=== PATIENT | female | born 1945 | race Caucasian/White ===

== ENCOUNTER 2016-09-14 08:00 | Outpatient (CLI) | payer MEDICARE, OTHER ==
--- NOTE | 2016-09-16 16:23 | EC ---
PATIENT:CHRIS KINCAID DATE OF SERVICE: SEX: F MEDICAL RECORD: [id number] DATE OF : 41 LOCATION:D.[facility] AGE OF PATIENT: 70 ADMISSION DATE: 09/14/16 REFERRING PHYSICIAN: INTERPRETING PHYSICIAN: SHIRLEY STEWARD MD ECHOCARDIOGRAM REPORT ECHO CHARGES 4 ECHO COMPLETE CLINICAL DIAGNOSIS: HYPERTENSION ECHOCARDIOGRAPHIC MEASUREMENTS (adult normal given) AC root (d.<3.7cm) 3.9 LV Septum d (<1.2 cm> 1.6 Valve Excursion 1.7 LV Septum (systole) 1.7 Left Atria (s.<4.0cm> 3.6 LVPW d(<1.2cm) 1.4 RV (d.<2.3cm) 3.3 LVPW (sytole) 1.9 LV diastole(<5.6CM) 5.4 MV E-F(>70mm/sec) LV systole 3.9 LVOT Diameter 1.5 MV exc.(>10mm) Est.ejection fraction (50-75%) Pericardial Effusion N DOPPLER: LVIT A 98.0 E 51.0 LA RVSP 31 LVOT 139 AOP1/2T 624 Asc. Ao 199 RVOT 96 RA PA 102 AV Gradient Peak 15.86 AV Mean 7.81 AV Area 1.5 MV Gradient Peak 3.3 MV Mean 1.03 MV Area COMMENTS: Alcoholism Worker: Tra LOYOLA Cleaner Touch Up Worker:1 Dr. Steward TAPE# PACS DATE OF SERVICE: 09/14/2016 Echocardiogram FINDINGS: 1. Left ventricular chamber size is within normal limits. Left ventricular systolic function is normal. Overall ejection fraction estimated at 55%. 2. Left atrium is within normal limits at 3.6 cm. Right atrium and right ventricular chamber sizes are mildly dilated. 3. Valvular structures: Aortic valve is bicuspid valve; however, there is no ECHOCARDIOGRAM REPORT [id number] CHRIS KINCAID significant aortic stenosis. The remaining valvular structures have normal structure and motion. 4. Doppler interrogation reveals mild aortic insufficiency, mild tricuspid regurgitation. No other valvular insufficiency or stenosis and pulmonary systolic pressure is normal estimated at 31 mmHg. 5. No evidence of pericardial effusion or left ventricular thrombus. TRANSINT:[id number] Voice Confirmation ID: [id number] DOCUMENT ID: [id number] SHIRLEY STEWARD MD at 1623 CC: [id number] DICTATION DATE: 09/14/16 0943 INDUSTRIAL CHEMIST: 09/14/16 1007 PRE [facility] [address] [place] [address]
== END 2016-09-14 23:59 | disposition home or self-care (01) ==
LOC: D.ECHO 08:00
DX: I10 Essential (primary) hypertension (principal)

== ENCOUNTER → 2017-05-26 09:29 | Outpatient (CLI) | payer MEDICARE, OTHER | LOC: D.MAMMO 09:29 | DX: Z12.31 Encounter for screening mammogram for malignant neoplasm of breast (principal) ==

== ENCOUNTER → 2017-06-22 17:01 | Outpatient (CLI) | payer MEDICARE, OTHER | END | disposition home or self-care (01) | LOC: D.MAMMO 15:00 | DX: R92.8 Other abnormal and inconclusive findings on diagnostic imaging of breast (principal) ==

== ENCOUNTER → 2017-11-09 09:31 | Outpatient (CLI) | payer MEDICARE, OTHER ==
--- NOTE | ~2017-11-09 | EC ---
PATIENT:CHRIS KINCAID DATE OF SERVICE: 11/09/17 SEX: F MEDICAL RECORD: [id number] DATE OF : 41 [facility]ATION:[facility] AGE OF PATIENT: 71 ADMISSION DATE: 11/09/17 REFERRING PHYSICIAN: INTERPRETING PHYSICIAN: SHIRLEY STEWARD MD ECHOCARDIOGRAM REPORT ECHO CHARGES 4 ECHO COMPLETE CLINICAL DIAGNOSIS: /THORACIC ANEURYSM ECHOCARDIOGRAPHIC MEASUREMENTS (adult normal given) AC root (d.<3.7cm) 3.7 cm LV Septum d (<1.2 cm> 1.5 cm Valve Excursion 1.9 cm LV Septum (systole) 2.2 cm Left Atria (s.<4.0cm> 2.9 cm LVPW d(<1.2cm) 1.5 cm RV (d.<2.3cm) 2.5 cm LVPW (sytole) 1.9 cm LV diastole(<5.6CM) 5.2 cm MV E-F(>70mm/sec) cm LV systole 2.8 cm LVOT Diameter 1.7 cm MV exc.(>10mm) cm Est.ejection fraction (50-75%) % Pericardial Effusion N DOPPLER: LVIT cm/sec A 64.0 cm/sec E 63.0 cm/sec LA cm/sec RVSP 37.0 mmHg LVOT 90.0 cm/sec AOP1/2T 716.0m/s Asc. Ao 202 cm/sec RVOT 58.0 cm/sec RA cm/sec PA 80.0 cm/sec AV Gradient Peak 16.3 mmHg AV Mean 7.8 mmHg AV Area 0.9 cm MV Gradient Peak 4.1 mmHg MV Mean 1.0 mmHg MV Area cm COMMENTS: Cream Dumper: 1 MADISON ETIENNEOE Hot Stamp Operator: 1 Dr. Steward TAPE# PACS DATE OF SERVICE: 11/09/2017 Echocardiogram FINDINGS: 1. Left ventricular chamber size is within normal limits. Left ventricular systolic function is normal. Overall ejection fraction estimated at 55%. 2. Left atrium, right atrium and right ventricular chamber sizes are within normal limits. 3. Valvular structures: Aortic valve is bicuspid, mild to moderately ECHOCARDIOGRAM REPORT [id number] CHRIS KINCAID calcified, valve area calculates to 0.9 cm-squared. There is a gradient of 16 mm across the valve. The remaining valvular structures have normal structure and motion. 4. Doppler interrogation elsewise reveals moderate aortic insufficiency, moderate mitral regurgitation, moderate tricuspid regurgitation, no other valvular insufficiency or stenosis. Pulmonary systolic pressure is estimated at 37 mmHg. 5. No evidence of pericardial effusion or left ventricular thrombus. 6. The ascending aorta is aneurysmally dilated at 4.2 cm. TRANSINT:[id number] Voice Confirmation ID: [id number] DOCUMENT ID: [id number] SHIRLEY STEWARD MD at 1153 CC: [id number] DICTATION DATE: 11/09/17 1251 SIGHT EFFECTS SPECIALIST: 11/09/17 1316 DEP CLI 11/09/17 [facility] [address] [place] [address]
== END | disposition home or self-care (01) ==
LOC: D.ECHO 09:31
DX: I71.2 Thoracic aortic aneurysm, without rupture (principal)

== ENCOUNTER → 2018-06-06 18:30 | Outpatient (CLI) | payer MEDICARE, OTHER | END | disposition home or self-care (01) | LOC: D.MAMMO 09:00 | DX: Z12.31 Encounter for screening mammogram for malignant neoplasm of breast (principal) ==

== ENCOUNTER → 2018-11-21 08:13 | Outpatient (CLI) | payer MEDICARE, BC ==
--- NOTE | 2018-11-24 14:57 | EC ---
PATIENT:CHRIS KINCAID DATE OF SERVICE: 11/21/18 SEX: F MEDICAL RECORD: [id number] DATE OF : 41 LOCATION:D.CT AGE OF PATIENT: 72 ADMISSION DATE: 11/21/18 REFERRING PHYSICIAN: INTERPRETING PHYSICIAN: SHIRLEY STEWARD MD ECHOCARDIOGRAM REPORT ECHO CHARGES 4 ECHO COMPLETE Date: 11/21/18 CLINICAL DIAGNOSIS: DYSPNEA HX OF BISCUPID AORTIC VALVE ECHOCARDIOGRAPHIC MEASUREMENTS (adult normal given) AC root (d.<3.7cm) 3.9 cm LV Septum d (<1.2 cm> 1.5 cm Valve Excursion 1.9 cm LV Septum (systole) 1.8 cm Left Atria (s.<4.0cm> 3.4 cm LVPW d(<1.2cm) 1.5 cm RV (d.<2.3cm) 3.5 cm LVPW (sytole) 2.0 cm LV diastole(<5.6CM) 4.9 cm MV E-F(>70mm/sec) cm LV systole 2.6 cm LVOT Diameter 1.6 cm MV exc.(>10mm) 1.5 cm Est.ejection fraction (50-75%) % DOPPLER: LVIT cm/sec A 80.0 cm/sec E 72.0 cm/sec LA cm/sec RVSP 31 mmHg LVOT 116 cm/sec AOP1/2T 631 m/s Asc. Ao 164 cm/sec RVOT 83 cm/sec RA cm/sec PA 94 cm/sec AV Gradient Peak 10.73mmHg AV Mean 5.78 mmHg AV Area 2.0 cm MV Gradient Peak 4.37 mmHg MV Mean 1.92 mmHg MV Area cm COMMENTS: Master Brewer: Tra LOYOLA Scientific Research Associate: Katty Steward TAPE# PACS Pericardial Effusion N DATE OF SERVICE: 11/21/2018 ECHOCARDIOGRAM FINDINGS: 1. Left ventricular chamber size is within normal limits. Left ventricular systolic function is normal. Overall ejection fraction estimated at 60%. 2. Left atrium, right atrium and right ventricular chamber sizes are within normal limits. 3. Valvular structures: Aortic valve is bicuspid valve. There is no ECHOCARDIOGRAM REPORT [id number] CHRIS KINCAID significant aortic stenosis. The remaining valvular structures have normal structure and motion. 4. Doppler interrogation reveals mild aortic insufficiency, mild mitral regurgitation, mild tricuspid regurgitation, no other valvular insufficiency or stenosis. Pulmonary systolic pressure is normal estimated at 31 mmHg. 5. No evidence of pericardial effusion or left ventricular thrombus. TRANSINT:[id number] Voice Confirmation ID: [id number] DOCUMENT ID: [id number] SHIRLEY STEWARD MD at 1457 CC: [id number] DICTATION DATE: 11/22/18 0950 VACUUM DRIER TENDER: 11/22/18 1044 DEP CLI 11/21/[address] [address]
== END | disposition home or self-care (01) ==
LOC: D.CT 08:13
PROVIDERS: ATTEND Internal Medicine Cardiovascular Disease
DX: I77.819 Aortic ectasia, unspecified site (principal); R06.00 Dyspnea, unspecified

== ENCOUNTER 2018-12-28 07:01 | Outpatient (CLI) | payer MEDICARE, BC ==
[~2018-12-28] VITALS: Ht 165.1 cm; Wt 70.5 kg
--- NOTE | ~2018-12-28 | HEMODYNAMI ---
PATIENT:CHRIS KINCAID MEDICAL RECORD: [id number] : 41 LOCATION:[facility] ADMISSION DATE: 12/28/18 Generatedon:12/28/20189:47 Patient name: CHRIS KINCAID Patient #: [id number] SSN: : 1945 Date of study: 12/28/2018 Page: Of Hemodynamic Procedure Report Patient Data Patient Demographics Procedure consent was obtained First Name: CHRIS Gender: Female Last Name: CODI : 1945 [facility] Initial: B Age: 73 year(s) Patient #: [id number] Race: Unknown Additional ID: [id number] Contact details Address: [address] [place] [address] [place] State: [place] City: [place] Zip code: [address] Past Medical History Allergies: No known allergies Admission Admission Data Admission Date: 12/28/2018 Admission Time: 7:01 Admit Source: Other Lab Results Lab Result Date: 12/28/2018 Lab Result Time: 7:40 Biochemistry Name Units Result Min Max BUN mg/dl 15 --(--*-)-- 7 18 Creatinine mg/dl 0.7 --(*---)-- 0.6 1.3 CBC Name Units Result Min Max Hematocrit % 41.2 -*(----)-- 42 54 Hemoglobin g/dl 13.9 --(*---)-- 13.5 17.5 Procedure Procedure Types Cath Procedure Diagnostic Procedure LHC LHC w/Coronaries Aortic Root Angiography Sedation Charges Moderate Sedation up to 30 minutes Procedure Description Procedure Date Procedure Date: 12/28/2018 Procedure Start Time: 9:17 Procedure End Time: 9:47 Procedure Staff Name Function Ganga Sanches MD Performing Physician Gabo Boyle RT Monitor Jose Connell RT Scrub Liya Chavez RN Nurse Ryan Denton RN Temple Meat Cutter Procedure Data Cath Procedure Fluoroscopy Diagnostic fluoroscopy Total fluoroscopy Time: 9.3 time: 9.3 min min Diagnostic fluoroscopy Total fluoroscopy dose: 664 dose: 664 mGy mGy Contrast Material Contrast Material Type Amount (ml) Isovue 370 110 Entry Location Entry Primary Successful Side Size Upsize Upsize Entry Closure Borrero ccessful Closure Location (Fr) 1 (Fr) 2 (Fr) Remarks Device Remarks Radial Right 6 Fr Mechanical artery Short Compression Femoral Right 5 Fr Exoseal artery Estimated blood loss: 5 ml Diagnostic catheters Device Type Used For End Catheter Placement DIAGNOSTIC Cresson 110cm 5 Procedure Fr catheter ([id number]) DIAGNOSTIC Av 110cm Procedure 5Fr catheter (803696) DIAGNOSTIC AR1 MOD 5Fr Procedure catheter ([id number]) DIAGNOSTIC JL 4.0 5Fr Procedure catheter (128291O) DIAGNOSTIC JL 4.0 5Fr Procedure catheter (487241F) DIAGNOSTIC JL 5 5Fr Procedure catheter (812706N) DIAGNOSTIC Pigtail 5Fr Procedure catheter (563673F) Procedure Complications No complications Procedure Medications Medication Administration Route Dosage 0.9% NaCl I.V. 100 ml/hr Oxygen etCO2 Nasal cannula 2 l/min Lidocaine 2% added to field 20 Heparin Flush Bag added to field 2 bags (1000units/500ml NS) Radial Cocktail added to field 1 syringe (Verapomil 2mg/Nitro 400mcg/Heparin 1500units) Versed I.V. 2 mg Fentanyl I.V. 50 mcg Versed I.V. 1 mg Fentanyl I.V. 25 mcg Hemodynamics Rest HGB: 13.9 (g/dl) Heart Rate: 72 (bpm) Pressure Samples Time Site Value (mmHg) Purpose Heart Use Rate(bpm) 9:22 LV 108/-3,12 Snapshot 74 9:22 AO 90/49(65) Pullback 75 9:22 LV 102/-1,8 Pullback 75 Gradients Valve Time Site 1 Site 2 Mean SEP/DFP Peak To Heart Use (mmHg) (sec/min) Peak Rate (mmHg) (bpm) Aortic 9:22 LV AO 12 22 12 75 102/-1,8 90/49(65) Calculations Valve P-P Mean Valve Index Valve Source Name Gradient Area Flow (cm2) Aortic 12 12 12 12 Snapshots Pre Cath Intra NCS Post Cath Vital Signs Time Heart Resp SPO2 etCO2 NIBP (mmHg) Rhythm Pain Sedation Rate (ipm) (%) (mmHg) Status Level (bpm) 9:01:56 68 13 98 37 143/83(121) NSR 0 (11) 10(A) , No pain 9:06:10 71 16 99 31.9 143/82(130) NSR 0 (11) 10(A) , No pain 9:10:22 68 15 99 37.1 115/65(93) NSR 0 (11) 10(A) , No pain 9:14:32 70 17 98 38.6 111/65(91) NSR 0 (11) 10(A) , No pain 9:18:42 72 19 97 39.3 101/62(87) NSR 0 (11) 9(A) , No pain 9:22:48 74 17 98 36.3 95/55(78) NSR 0 (11) 9(A) , No pain 9:26:51 73 14 96 37 98/60(71) NSR 0 (11) 9(A) , No pain 9:30:57 73 15 99 37.8 106/61(77) NSR 0 (11) 9(A) , No pain 9:35:05 71 14 100 37.1 111/61(81) NSR 0 (11) 9(A) , No pain 9:39:13 75 16 99 37.8 114/67(92) NSR 0 (11) 9(A) , No pain 9:43:23 74 10 100 38.5 122/70(99) NSR 0 (11) 10(A) , No pain Medications Time Medication Route Dose Verified Delivered Reason Notes Ef fectiveness by by 9:01:03 0.9% NaCl I.V. 100 Ganga Liya used for ml/hr Myron Chavez healthcare translator 9:01:09 Oxygen etCO2 2 l/min Ganga Liya used for Nasal Myron Chavez procedure cannula RN 9:01:15 Lidocaine 2% added 20ml Ganga Ganga for local to vial Myron Sanches MD anesthetic field 9:01:19 Heparin Flush added 2 bags Ganga Ganga used for Bag to Myron Sanches MD procedure (1000units/500ml field NS) 9:01:25 Radial Cocktail added 1 Ganga Ganga used for (Verapomil to syringe Myron Sanches MD procedure 2mg/Nitro field 400mcg/Heparin 1500units) 9:11:33 Versed I.V. 2 mg Ganga Liya for Myron Chavez sedation RN 9:11:39 Fentanyl I.V. 50 mcg Ganga Liya for Myron Chavez sedation RN 9:16:33 Versed I.V. 1 mg Ganga Liya for Myron Chavez sedation RN 9:16:37 Fentanyl I.V. 25 mcg Ganga Liya for Myron Chavez sedation financial aid officer Log Time Note 8:48:43 Informed consent obtained and on chart 8:48:47 Admit Source: Other 8:49:16 Diagnostic Cath status Elective 8:49:19 Ryan Denton RN sent for patient. Start room use. 8:51:10 Time tracking: Regular hours (M-F 7:00 - 5:00) 8:51:14 Plan of Care:Hemodynamics will remain stable., Cardiac rhythm will remain stable., Comfort level will be maintained., Respiratory function will remain adequate., Patient/ family verbilizes understanding of procedure., Procedure tolerated without complication., Recovers from procedure without complications.. 8:51:42 H&P Date Dictated: 12/19/2018 Within 30 days and on chart., H&P Addendum completed by physician on day of procedure. (MUST COMPLETE FOR ALL OUTPATIENTS). 8:54:25 Lab Result : Creatinine 0.7 mg/dl 8:54:25 Lab Result : BUN 15 mg/dl 8:54:25 Lab Result : Hemoglobin 13.9 g/dl 8:54:25 Lab Result : Hematocrit 41.2 % 8:54:34 Lab results completed and on chart. 8:55:17 Patient received from Pre/Post Procedure Room to CCL 1 Alert and oriented. Tansferred to table in Supine position. 8:55:18 Warm blankets applied, and carter hugger turned on for patient comfort. 8:55:18 Correct patient and procedure confirmed by team. 8:55:19 ECG and BP/O2 sat monitors applied to patient. 8:55:20 Pre-procedure instructions explained to patient. 8:55:21 Pre-op teaching completed and patient verbalized understanding. 8:55:24 Family in waiting room. 8:55:27 Patient NPO since Midnight. 8:55:32 Patient allergic to No known allergies 9:00:53 Vital chart was started 9:01:03 0.9% NaCl 100 ml/hr I.V. was administered by Liya Chavez RN; used for procedure; 9:01:09 Oxygen 2 l/min etCO2 Nasal cannula was administered by Liya Chavez RN; used for procedure; 9::15 Lidocaine 2% 20ml vial added to field was administered by Ganga Sanches MD; for local anesthetic; 9::19 Heparin Flush Bag (1000units/500ml NS) 2 bags added to field was administered by Ganga Sanches MD; used for procedure; 9::25 Radial Cocktail (Verapomil 2mg/Nitro 400mcg/Heparin 1500units) 1 syringe added to field was administered by Ganga Sanches MD; used for procedure; 9:08:13 Baseline sample Acquired. 9::47 Rhythm: sinus rhythm 9::48 Full Disclosure recording started 9:08:51 Is the patient allergic to Iodine/contrast media? No. 9:09:02 Is patient on blood thinner?No 9:09:04 Patient diabetic? No. 9:09:07 Previous problem with sedation/anesthesia? No ? 9:09:08 Snore? Yes 9:09:08 Sleep apnea? No 9:09:09 Deviated septum? No 9:09:10 Opens mouth fully? Yes 9:09:10 Sticks out tongue? Yes 9:09:42 Airway obstruction? Yes asthma 9:09:44 Dentures? No ? 9:09:47 Pre procedure: right dorsailis pedis pulse 2+ Normal; easily identifiable; not easily obliterated 9:09:50 Modified Rufino's test Ulnar > 7 seconds. 9:09:52 Patient pain scale 0/10 ?. 9:09:59 IV patent on arrival in left wrist with 0.9% NaCl at KVO. 9:10:04 Right Radial & Right Groin area was prepped with chlora-prep and draped in sterile fashion 9:10:06 Alarms reviewed by R. N. 9:10:07 Sharps counted by scrub and verified by R.N. 9:10:08 Use device set Radial Dx or PCI 9:10:10 ACIST Syringe (64291) opened to sterile field. 9:10:10 Medline Cath Pack ([id number]) opened to sterile field. 9:10:12 Bag Decanter (2002) opened to sterile field. 9:10:14 ACIST Hand Control (45538) opened to sterile field. 9:10:15 ACIST Manifold (61087) opened to sterile field. 9:10:15 Tegaderm 4 x 4 (1626W) opened to sterile field. 9:10:16 MBrace Wrist Support ([id number]) opened to sterile field. 9:10:16 DIAGNOSTIC WIRE .035 260cm J wire (717148) opened to sterile field. 9:10:18 SHEATH 6FR Slender (69-0680) opened to sterile field. 9:10:20 NEEDLE Cook 21G 4cm Radial (U71053) opened to sterile field. 9:10:30 Physician arrived 9:10:30 --------ALL STOP TIME OUT------ 9:10:30 Final Timeout: patient, procedure, and site verified with staff and physician. All members of the team are in agreement. 9:10:32 Right Radial & Right Groin site verified by team. 9:10:39 Maximum allowable Isovue 370 dose 300ml. Physician notified. (300ml for normal creatinines. For patients with creatinine of 1.7 or higher multiply weight(kg) x 5 divided by creatinine.) 9:10:42 Fire Safety Assessment: A--An alcohol-based skin anteseptic being used preoperatively., C--Open oxygen or nitrous oxide is being used., D--An ESU, laser, or fiber-optic light is being used. 9:10:47 Physical assessment completed. ASA score P 2 - A patient with mild systemic disease as per Ganga Sanches MD. 9:10:52 Sedation plan: IV Moderate Sedation Medication:Versed, Fentanyl 9:11:02 Zero performed for pressure channel P1 9:11:33 Versed 2 mg I.V. was administered by Liya Chavez RN; for sedation; 9:11:39 Fentanyl 50 mcg I.V. was administered by Liya Chavez RN; for sedation; 9:16:33 Versed 1 mg I.V. was administered by Liya Chavez RN; for sedation; 9:16:37 Fentanyl 25 mcg I.V. was administered by Liya Chavez RN; for sedation; 9:17:54 Procedure started. 9:17:59 Local anesthetic to right radial artery with Lidocaine 2% by Ganga Sanches MD.INITIAL ACCESS ONLY 9:19:12 A 6 Fr Short sheath was inserted into the Right Radial artery 9:20:00 A DIAGNOSTIC Cresson 110cm 5 Fr catheter (253980) was advanced over the wire and used for Procedure. 9:22:26 LV gram done using JOYNER 9:22:34 Injector settings: Ml/sec: 10, Volume: 20, 9:22:35 LV hemodynamics recorded. 9:22:39 EF : 60 % 9:25:40 Catheter removed. unable to cannulate vessel. 9:25:44 A DIAGNOSTIC Av 110cm 5Fr catheter (362906) was advanced over the wire and used for Procedure. 9:27:09 Catheter removed. unable to cannulate vessel. 9:28:17 A DIAGNOSTIC AR1 MOD 5Fr catheter (531569E) was advanced over the wire and used for Procedure. 9:28:35 RCA angiography performed. 9:32:20 A DIAGNOSTIC JL 4.0 5Fr catheter (332260T) was advanced over the wire and used for Procedure. 9:32:29 Catheter removed. unable to cannulate vessel. 9:32:43 SHEATH 5FR Melcher Dallas (KSY581) opened to sterile field. 9:32:51 Local anesthetic to right femoral artery with Lidocaine 2% by Ganga Sanches MD.ADDITIONAL ACCESS 9:32:58 A 5 Fr sheath was inserted into the Right Femoral artery 9:35:36 A DIAGNOSTIC JL 4.0 5Fr catheter ([id number]) was advanced over the wire and used for Procedure. 9:35:46 Catheter removed. unable to cannulate vessel. 9:35:55 A DIAGNOSTIC JL 5 5Fr catheter (247879X) was advanced over the wire and used for Procedure. 9:36:30 LCA angiography performed. 9:38:08 Catheter exchanged over wire. 9:38:20 A DIAGNOSTIC Pigtail 5Fr catheter (446685A) was advanced over the wire and used for Procedure. 9:38:21 TR BAND Standard ([id number]) opened to sterile field. 9:39:30 Aortic Root visualized 9:43:18 Catheter removed. 9:44:08 EXOSEAL 5Fr (EX500) opened to sterile field. 9:44:16 Sheath removed intact; hemostasis achieved with Exoseal to the Right Femoral artery. 9:44:22 Sheath removed intact; hemostasis achieved with Mechanical Compression to the Right Radial artery. 9:44:31 Procedure ended.(Physican Out) 9:44:45 Fluoroscopy time 09.30 minutes. 9:44:49 Fluoroscopy dose: 664 mGy 9:44:49 Flurop Dose total: 664 9:44:53 Contrast amount:Isovue 370 110ml. 9:44:59 Sharps counted by scrub and verified by R.N. 9:45:03 TR band inflated with 12cc of air. 9:45:04 Insertion/operative site no bleeding no hematoma. 9:45:07 Post-op/insertion site Right Femoral artery dressed using a 4 x 4 and Tegaderm. 9:45:10 Post right femoral artery:stable, soft, clean and dry 9:45:14 Post right radial artery:stable, soft, clean and dry 9:45:16 Post Procedure Pulses reassessed and unchanged 9:45:18 Post-procedure physical assessment completed. ASA score P 2 - A patient with mild systemic disease as per Ganga Sanches MD. 9:45:20 Post procedure rhythm: unchanged. 9:45:22 Estimated blood loss: 5 ml 9:45:30 Post procedure instruction explained to patient.Patient verbalizes understanding. 9:45:31 Patient needs reinforcement of post procedure teaching. 9:45:51 Procedure type changed to Cath procedure, Diagnostic procedure, LHC, LHC w/Coronaries, Aortic Root Angiography, Sedation Charges, Moderate Sedation up to 30 minutes 9:47:01 Procedure and supply charges have been captured, reviewed, submitted and are correct. 9:47:03 Procedure Complication : No complications 9:47:05 Vital chart was stopped 9:47:06 See physician's report for complete and final results. 9:47:07 Report given to Pre/Post Procedure Room. 9:47:09 Patient transfered to Pre/Post Procedure Room with Stretcher. 9:47:15 Procedure ended. 9:47:15 Full Disclosure recording stopped 9:47:18 End room use (Document Last) Device Usage Item Name Manufacture Quantity Catalog Hospital Part Current Minimal Lot# / Number Charge Number Stock Stock Serial# Code ACIST Acist 1 50965 593877 419228 695573 20 barcoo (66523Private Practice Inc Medline Medline 1 [id number] 076821 50840 783430 5 Cath Pack ([id number]) Bag Microtek 1 040829 55804 212172 5 Decanter Medical Inc. () ACIST Hand Acist 1 10770 019760 199581 546016 5 Control Medical (62932) Systems Inc ACIST Acist 1 94166 317068 984288 195789 5 Manifold Medical (43424) Systems Inc Tegaderm 4 3M 1 1626W 362253 288697 705293 5 x 4 (1626W) MBrace Advanced 1 140-0250-00 258839 73885 781299 5 Wrist Vascular Support Dynamics ([id number]) DIAGNOSTIC [facility] [place] 1 986687 316959 725630 457274 30 WIRE .035 260cm J wire (619738) SHEATH 6FR Terumo 1 [id number] 405768 848342 611576 5 Slender (80-1060) NEEDLE HDF [facility] 1 O33438 184965 007133 845218 5 21G 4cm Radial (E71847) DIAGNOSTIC Terumo 1 40-5013 511395 877420 987784 5 Cresson 110cm 5 Fr catheter (315693) DIAGNOSTIC Terumo 1 40-5023 400798 074677 656538 5 Av 110cm 5Fr catheter (432287) DIAGNOSTIC Cardinal 1 162764W 201028 668017 845319 15 AR1 MOD 5Fr Health catheter (089055Z) DIAGNOSTIC Cardinal 1 466124O 252741 740762 680533 10 JL 4.0 5Fr Health catheter (500039T) SHEATH 5FR Terumo 1 ORE730 423420 728139 657098 5 Melcher [place] (LCE961) DIAGNOSTIC Cardinal 1 580473L 062626 450999 049167 5 JL 5 5Fr Health catheter (648906A) DIAGNOSTIC Cardinal 1 373000M 128772 335297 020258 5 Pigtail 5Fr Health catheter (352085W) TR BAND Terumo 1 [id number] 851904 472725 109957 40 Standard (VLT22PON) EXOSEAL 5Fr Cardinal 1 EX500 085036 547963 068723 10 (EX500) Health Signature Audit [place] Stage Time Signature Unsigned Intra-Procedure 12/28/2018 Gabo Boyle 9:47:40 AM RT(R) Signatures Monitor : Gabo Boyle RT Signature : Date : Time : [place] [id number] [facility] [place] [address]
[2018-12-28] MEDS ORDERED: RESTORIL15 MG PO (07:23)
[2018-12-28] MEDS ORDERED: PRAVACHOL40 MG PO (07:24)
[2018-12-28] MEDS ORDERED: PROZAC20 MG PO (07:24)
[2018-12-28] MEDS ORDERED: BUPROPION HCL150 M1 PO (07:24)
[2018-12-28] MEDS ORDERED: ZYRTEC10 MG PO (07:25)
[2018-12-28] MEDS ORDERED: LEVOTHYROXINE125 MCG PO (07:25)
[2018-12-28] MEDS ORDERED: DULERA 100 MCG8.8 GM INH (07:25)
[2018-12-28] MEDS ORDERED: SINGULAIR10 MG PO (07:25)
[2018-12-28] MEDS ORDERED: FLUTICASONE PRO16 GM NASAL (07:25)
[2018-12-28] MEDS ORDERED: ASPIRIN325 MG PO (07:26)
[2018-12-28] MEDS ORDERED: PROBIOTIC BLEN1 EACH PO (07:26)
[2018-12-28] MEDS ORDERED: CALCIUM 500 +1 EAC3 PO (07:26)
[2018-12-28 07:37] VITALS: BP 135/81; Ht 165.1 cm; Wt 70.5 kg
[2018-12-28 07:45] LABS: BASOPHILS 0.9 % (0-2); EOSINOPHILS 10.3 % (0-7); HEMATOCRIT 41.2 % (36.0-48.0); HEMOGLOBIN 13.9 g/dL (12-16); IMMATURE GRANULOCYTES 0.3 % (0-5); LYMPHOCYTES 35.8 % (15-50); MCH 32.2 pg (26.0-34.0); MCHC 33.7 g/dL (31.0-37.0); MCV 95.4 fL (80.0-100.0); MEAN PLATELET VOLUME 10.1 fL (7.4-10.4); MONOCYTES 8.4 % (2-11); NEUTROPHILS 44.3 % (40-80); PLATELET COUNT 337 10x3/uL (130-400); RBC 4.32 10x6/uL (4.00-5.40); RDW 13.8 % (11.5-14.5); WBC 6.4 10x3/uL (4.8-10.8)
[2018-12-28 07:52] LABS: CALC OSMOLALITY 287 mosm/kg (275-300); CALCIUM 8.7 mg/dL (8.5-10.1); CARBON DIOXIDE 28.6 mmol/L (21.0-32.0); CHLORIDE - SERUM 109 mmol/L (98-107); CREATININE - SERUM 0.7 mg/dL (0.6-1.3); GLUCOSE 96 mg/dL (74-106); POTASSIUM - SERUM 4.2 mmol/L (3.5-5.1); SODIUM 144 mmol/L (136-145); UREA NITROGEN 15 mg/dL (7-18); eGFR NON AFRICAN AMERICAN 86 mL/min (90-120)
--- NOTE | 2018-12-28 09:55 | NUR ---
PT RECEIVED VIA STRETCHER FROM DIRECTOR STAFFING FOR RECOVERY. PT SLEEPY BUT VERBALLY AROUSABLE. TR BAND AND IMMOBILIZER IN PLACE ON R WRIST, DRESSING CDI NO BLEEDING OR SWELLING NOTED. R GROIN W 5FR EXOCELE, DRESSING CDI NO BLEEDING OR HEMATOMA NOTED. IV PATENT INFUSING VIA ORDERS. HR NSR RATE 65, BP 127/73, O2 SAT 95, PLACED ON 2L O2 VIA NC. AT BEDSIDE. PT DENIES PAIN OR DISCOMFORT, IN STRUCTED TO KEEP HEAD FLAT ON PILLOW AND R LEG STRAIGHT.
--- NOTE | 2018-12-28 10:16 | NUR ---
PT SLEEPING COMFORTABLY, TR BAND IN PLACE TO R WRIST, DRESSING REMAINS CDI NO BLEEDING OR HEMATOMA NOTED. R GROIN DRESSING CDI NO BLEEDING OR HEMATOMA NOTED. VSS. CALL LIGHT IN REACH AND AT BEDSIDE.
--- NOTE | 2018-12-28 10:45 | NUR ---
4 CC AIR REMOVED FROM TR BAND, NO BLEEDING OR HEMATOMA NOTED.
--- NOTE | 2018-12-28 10:45 | NUR ---
HOB ELEVATED SLIGHTLY, R WRIST DRESSING CDI NO BLEEDING OR SWELLING NOTED. R GROIN SOFT, NO BLEEDING OR SWELLING NOTED. COFFEE AND WATER GIVEN PER PT REQUEST. PT DENIES PAIN OR ANY OTHER NEEDS AT THIS TIME. CALL LIGHT IN REACH, REMAINS AT BEDSIDE.
--- NOTE | 2018-12-28 11:32 | NUR ---
PT SITTING UP VISITING W . TOLERATED SANDWICH AND DRINK W/O NAUSEA. PT DENIES PAIN OR DISCOMFORT. 3 ADD'L CC AIR REMOVED FROM TR BAND, NO BLEEDING OR SWELLING NOTED. R GROIN REMAINS SOFT NO BLEEDING OR SWELLING NOTED.
--- NOTE | 2018-12-28 11:49 | NUR ---
DISCHARGE INSTRUCTIONS REVIEWED W PT AND , BOTH VERBALIZED UNDERSTANDING. IV REMOVED W CATH INTACT, MONITORS REMOVED AND PT UP TO DRESS FOR DISCHARGE.
--- NOTE | 2018-12-28 11:55 | NUR ---
REMAINING AIR AND TR BAND REMOVED. 2X2 AND TEGADERM DRESSING APPLIED, NO BLEEDING OR HEMATOMA NOTED. PT DISCHARGED VIA WC TO PRIVATE VEHICLE.
== END 2018-12-28 11:50 | disposition home or self-care (01) ==
LOC: D.CATH 07:01
PROVIDERS: ATTEND Internal Medicine Cardiovascular Disease
DX: I71.2 Thoracic aortic aneurysm, without rupture (principal); Q23.1 Congenital insufficiency of aortic valve; I25.10 Atherosclerotic heart disease of native coronary artery without angina pectoris; I35.1 Nonrheumatic aortic (valve) insufficiency; Z01.812 Encounter for preprocedural laboratory examination

== ENCOUNTER 2019-02-26 11:30 | Inpatient (IN) | payer MEDICARE, BC ==
[~2019-02-26] VITALS: Ht 165.1 cm; Wt 77.0 kg
[~2019-02-26 11:30] MED LIST: ASPIRIN325 MG PO; BUPROPION HCL150 M1 PO; CALCIUM 500 +1 EAC3 PO; DULERA 100 MCG8.8 GM INH; FLUTICASONE PRO16 GM NASAL; LEVOTHYROXINE125 MCG PO; PRAVACHOL40 MG PO; PROBIOTIC BLEN1 EACH PO; PROZAC20 MG PO; RESTORIL15 MG PO; SINGULAIR10 MG PO; ZYRTEC10 MG PO
[2019-02-26 12:54] LABS: BASOPHILS 0.7 % (0-2); EOSINOPHILS 11.3 % (0-7); HEMATOCRIT 42.5 % (36.0-48.0); HEMOGLOBIN 14.2 g/dL (12-16); IMMATURE GRANULOCYTES 0.3 % (0-5); LYMPHOCYTES 32.8 % (15-50); MCH 31.6 pg (26.0-34.0); MCHC 33.4 g/dL (31.0-37.0); MCV 94.4 fL (80.0-100.0); MEAN PLATELET VOLUME 10.1 fL (7.4-10.4); MONOCYTES 9.1 % (2-11); NEUTROPHILS 45.8 % (40-80); PLATELET COUNT 362 10x3/uL (130-400); WBC 5.9 10x3/uL (4.8-10.8)
[2019-02-26 13:04] LABS: APPEARANCE CLEAR (CLEAR); BILIRUBIN NEGATIVE (NEGATIVE); COLOR YELLOW (YELLOW); GLUCOSE NEGATIVE (NEGATIVE); KETONE NEGATIVE (NEGATIVE); NITRITE NEGATIVE (NEGATIVE); PROTEIN NEGATIVE (NEGATIVE); UROBILINOGEN NORMAL (NORMAL)
[2019-02-26 13:06] LABS: APTT 24.4 SECONDS (22.8-39.4); INR 0.93 (0.85-1.17)
[2019-02-26 13:20] LABS: ALBUMIN 3.6 g/dL (3.4-5.0); ALKALINE PHOSPHATASE 61 U/L (46-116); ALT (SGPT) 24 U/L (10-68); BILIRUBIN - TOTAL 0.24 mg/dL (0.2-1.3); CALC OSMOLALITY 279 mosm/kg (275-300); CALCIUM 9.5 mg/dL (8.5-10.1); CARBON DIOXIDE 29.1 mmol/L (21.0-32.0); CHLORIDE - SERUM 104 mmol/L (98-107); CHOLESTEROL, TOTAL 184 mg/dL (0-200); CREATININE - SERUM 0.7 mg/dL (0.6-1.3); GLUCOSE 101 mg/dL (74-106); PHOSPHOROUS 3.9 mg/dL (2.5-4.9); POTASSIUM - SERUM 4.3 mmol/L (3.5-5.1); PROTEIN - SERUM 7.2 g/dL (6.4-8.2); SODIUM 139 mmol/L (136-145); T4 THYROXIN - FREE 1.16 ng/dL (0.76-1.46); THYROID STIMULATING HORMONE 0.16 uIU/mL (0.36-3.74); UREA NITROGEN 17 mg/dL (7-18); URIC ACID 3.4 mg/dL (2.6-7.2); eGFR NON AFRICAN AMERICAN 86 mL/min (90-120)
[2019-02-28] VITALS (37 sets, daily range): BP systolic 75–140; BP diastolic 47–92; BMI 26.3; BMI 25.3
[2019-02-28] MEDS ORDERED: PROVENTIL/2.5 MG/3 M INH (05:49)
--- NOTE | 2019-02-28 14:25 | NUR ---
PT ARRIVED IN THE UNIT. PT HOOKED TO ICU MONITORS. WAS INSTRUCTED IMMIDIATLY BY DR CALLAHAN TO GET ROCERONIUM. 5CC WAS GIVEN BY DR CALLAHAN.8 ETT 23 AT THE LIP. RIGHT IJ SWAN-RENE ABOUT 49 CM. MIDLINE STERNAL DRESSING C/D/I. SUBSTERNAL DRESSING NOTED WITH CT X2 "A" Y'D INTO A SINGLE TUBE. AND CT P. BOTH CONNECTED TO 20 H20 SUCTION. R RADIAL KATHY NOTED WITH THE WRIST PROTECTOR ON. IV NOTED TO THE LEFT HAND. FC NOTED. DRESSING NOTED TO THE RIGHT GROIN C/D/I. RIGHT COBAN FROM ANKLE TO THIGH NOTED WITH A SINGLE COMPRESSED KARINE DRAIN MID LEG. WAS INSTRCUTED TO KEEP SBP BELOW 120. WILL CONT POC.
--- NOTE | 2019-02-28 14:50 | NUR ---
DR LIANG GAVE ORDER TO START 1 UNIT OF PRBC.
[2019-02-28 15:11] LABS: BASOPHILS 0.1 % (0-2); EOSINOPHILS 0.4 % (0-7); HEMATOCRIT 29.3 % (36.0-48.0); HEMOGLOBIN 10.2 g/dL (12-16); IMMATURE GRANULOCYTES 0.5 % (0-5); LYMPHOCYTES 10.1 % (15-50); MCH 31.3 pg (26.0-34.0); MCHC 34.8 g/dL (31.0-37.0); MCV 89.9 fL (80.0-100.0); MEAN PLATELET VOLUME 9.6 fL (7.4-10.4); MONOCYTES 5.9 % (2-11); RBC 3.26 10x6/uL (4.00-5.40); RDW 13.5 % (11.5-14.5); WBC 9.5 10x3/uL (4.8-10.8)
[2019-02-28 15:15] LABS: PLATELET COUNT 197 10x3/uL (130-400)
--- NOTE | 2019-02-28 15:41 | NUR ---
PT VOMITED SCANT AMOUNT OF BROWN EMESIS AND BP WAS ELEVATED. KI STOPED AND NITRO INITIATED. SEE FLOW SHEET.
--- NOTE | 2019-02-28 15:44 | NUR ---
NO MORE S/SX OF NAUSEA OR VOMITING. HYPOTENSION NOTED. NITRO STOPPED AND KI INITIATED. SEE IV FLOW SHEET.
--- NOTE | 2019-02-28 16:00 | NUR ---
FANY KEENE APPLIED TO THE PT. SEE VITAL SIGNS FOR TEMP
--- NOTE | 2019-02-28 16:05 | NUR ---
DR LIANG NOTIFIED ABOUT THE PTS CURRENT VITAL AND CARDIAC INDEX OF 1.9. NOTIFIED THE BLOOD IS IN. NO NEW ORDERS AT THIS TIME.
[2019-02-28 16:30] LABS: INR 1.26 (0.85-1.17); PROTIME 15.3 SECONDS (11.6-15.0)
--- NOTE | 2019-02-28 16:35 | NUR ---
DR LIANG IN THE UNIT. GIVE 250CC OF PLASMALYTE OVER 1 HOUR. INSTERT OGT. OGT WAS INSERTED. PLACMENT CHECKED VIA A&A.
--- NOTE | 2019-02-28 17:25 | NUR ---
RT PLACED THE PT ON CPAP. PT AWAKE AND TOLERATING WELL.
--- NOTE | 2019-02-28 17:45 | NUR ---
DR LIANG UPDATED ABOUT HYPOTENSION. ABG NOW AND GIVE ANOTHER 250 BOLUS.
--- NOTE | 2019-02-28 18:10 | NUR ---
KATHY WAVEFORM BECOMING FLAT. DR LIANG STATED TO CONNOR EMERSON WITH A MAP >65 USING NIBP.
--- NOTE | 2019-02-28 18:30 | NUR ---
CLOT NOTED IN THE "A" CT. CLOT WAS BROKEN UP BY USING MY FINGER AND 150CC OF BLOODY DRAINAGE NOTED. DR LIANG NOTIFIED. Q 12 I&O AND GIVE ANOTHER BOLUS.
--- NOTE | 2019-02-28 18:45 | NUR ---
PLURAVAC CT CHANGED. BLOODY DRAINGE NOTED WITH CLOTS.
--- NOTE | 2019-02-28 19:18 | NUR ---
REPORT RECEIVED, SHIFT ASSESSMENT COMPLETED PER FLOW SHEET. PPP. RT IJ CVL PATENT, SWAN RENE AT APPROXIMATELY 49 CM, DRESSING C/D/I. OGT TO LIWS, BROWN STOMACH CONTENT NOTED, PLACEMENT VERIFIED VIA AUSCULTATION. VALLE CATHETER TO GRAVITY SECURED. SEE FLOW SHEET FOR COMPLETE ASSESSMENT. WILL CONTINUE TO MONITOR.
--- NOTE | 2019-02-28 19:20 | NUR ---
DAY SHIFT LEONIE MEYERS ON PHONE WITH DR. LIANG, 250 NS BOLUS INITIATED BY MIRA HADLEY.
--- NOTE | 2019-02-28 19:30 | NUR ---
UNABLE TO DO SUICIDE RISK SCREENING, PATIENT INTUBATED ON VENT.
--- NOTE | 2019-02-28 19:57 | NUR ---
CALLED AND SPOKE TO DR. LIANG, ABG RESULTS, VS, OUTPUT, IV DRIPS, CI AND CO, PA PRESSURE, AND PATIENT'S CURRENT STATUS REVIEWED. ORDERS RECEIVED FOR 250 ML BOLUS OVER ONE HOUR, 10 MEQ KCL, ONE UNIT PRBC'S, TITRATE NEOSYNEPHRINE DOWN IF CUFF PRESSURE MEAN 65, DO NOT WEAN OFF VENT, OBTAIN OBG ONCE BLOOD PRODUCTS/NS BOLUS DONE INFUSING.
--- NOTE | 2019-02-28 20:00 | NUR ---
250 ML OF NS BOLUS INFUSING NOW PER DR. LIANG'S ORDERS. MAP WITHIN ORDERED PARAMATERS, KI DECREASED TO 0.8 MCG/KG/MIN. WILL CONTINUE TO MONITOR.
--- NOTE | 2019-02-28 20:17 | NUR ---
AT BEDSIDE, UPDATE GIVEN, QUESTIONS ANSWERED. PATIENT CALM. WILL CONTINUE TO MONITOR.
--- NOTE | 2019-02-28 20:20 | NUR ---
ONE UNIT PRBC INFUSING NOW PER DR. LIANG'S ORDERS.
--- NOTE | 2019-02-28 20:35 | NUR ---
10 MEQ OF KCL INFUSING OVER ONE HOUR NOW PER DR. LIANG'S ORDERS.
--- NOTE | 2019-02-28 20:45 | NUR ---
AMIODARONE DECREASED TO 0.5 MG/MIN INSTRUCTED BY DAY SHIFT RN PER DR. LIANG'S ORDERS.
--- NOTE | 2019-02-28 21:15 | NUR ---
PRBC DONE INFUSING, NO ACUTE TRANSFUSION REACTIONS NOTED.
--- NOTE | 2019-02-28 21:19 | NUR ---
RT ASH AT BEDSIDE FOR ABG BLOOD DRAW.
--- NOTE | 2019-02-28 21:45 | NUR ---
CALLED AND SPOKE TO DR. LIANG, UPDATE GIVEN ON PATIENT'S CURRENT STATUS, ABG RESULTS, VS, OUTPUT, IV DRIPS REVIEWED. NEW ORDERS RECEIVED FOR 250 ML NS BOLUS, KEEP MAP 60 OR >, DO NOT WEAN PATIENT OFF OF VENT, AND OK TO USE DIPRIVAN FOR SEDATION.
--- NOTE | 2019-02-28 22:01 | NUR ---
250 NS BOLUS INFUSING OVER AN HOUR PER DR. LIANG'S ORDERS.
--- NOTE | 2019-02-28 22:14 | NUR ---
PATIENT VERY AGITATED, VENT ALARMING, REORIENTATION PROVIDED, UNABLE TO KEEP CALM, DIPRIVAN INITIATED, WILL CONTINUE TO MONITOR.
--- NOTE | 2019-02-28 23:00 | NUR ---
REASSESSMENT COMPLETED PER FLOW SHEET, SEE FOR DETAILS. NO ACUTE CHANGES NOTED. SEDATED ON VENT. WILL CONTINUE TO MONITOR. ORAL CARE PROVIDED.
[2019-03-01] VITALS (50 sets, daily range): BP systolic 92–113; BP diastolic 54–80; Ht 165.1 cm; Wt 77.0 kg
--- NOTE | 2019-03-01 01:00 | NUR ---
NO ACUTE CHANGES NOTED, SEDATED ON VENT. WILL CONTINUE TO MONITOR.
--- NOTE | 2019-03-01 03:00 | NUR ---
REASSESSMENT COMPLETED PER FLOW SHEET, SEE FOR DETAILS. NO ACUTE CHANGES NOTED. SEDATED ON VENT, FOLLOWING COMMANDS. ORAL CARE PROVIDED. WILL CONTINUE TO MONITOR.
--- NOTE | 2019-03-01 04:14 | NUR ---
AT BEDSIDE, UPDATE GIVEN, QUESTIONS ANSWERED.
--- NOTE | 2019-03-01 04:27 | NUR ---
K 3.9 ON ABG, 5 MEQ KCL GIVEN PER PROTOCOL.
--- NOTE | 2019-03-01 05:00 | NUR ---
SUBSTERNAL DRESSING CHANGED, TPM WIRE SECURED.
[2019-03-01 06:13] LABS: HEMATOCRIT 31.6 % (36.0-48.0); HEMOGLOBIN 11.1 g/dL (12-16); MCH 30.3 pg (26.0-34.0); MCHC 35.1 g/dL (31.0-37.0); MEAN PLATELET VOLUME 10.3 fL (7.4-10.4); RBC 3.66 10x6/uL (4.00-5.40); RDW 15.9 % (11.5-14.5)
[2019-03-01 06:16] LABS: MCV 86.3 fL (80.0-100.0)
[2019-03-01 06:33] LABS: ALBUMIN 2.2 g/dL (3.4-5.0); ALKALINE PHOSPHATASE 42 U/L (46-116); ALT (SGPT) 19 U/L (10-68); BILIRUBIN - TOTAL 0.74 mg/dL (0.2-1.3); CALC OSMOLALITY 296 mosm/kg (275-300); CALCIUM 7.3 mg/dL (8.5-10.1); CARBON DIOXIDE 26.8 mmol/L (21.0-32.0); CHLORIDE - SERUM 112 mmol/L (98-107); CREATININE - SERUM 0.6 mg/dL (0.6-1.3); POTASSIUM - SERUM 3.9 mmol/L (3.5-5.1); PROTEIN - SERUM 4.5 g/dL (6.4-8.2); SODIUM 146 mmol/L (136-145); UREA NITROGEN 17 mg/dL (7-18); eGFR NON AFRICAN AMERICAN > 90 mL/min (90-120)
[2019-03-01 06:36] LABS: GLUCOSE 173 mg/dL (74-106)
--- NOTE | 2019-03-01 07:00 | NUR ---
REPORT RECEVIED FROM THE OFF GOING RN. SEE ASSESSMENT IN THE PTS FLOW SHEET. PT AWAKE AND FOLLOWING COMMANDS. PT REMAINS ON THE VENTILATOR. VSS AT THIS TIME. SEE IV FLOW SHEET FOR DRIPS. 8.0 ETT 23 AT THE LIP. OGT NOTED TO LIS. PLACEMENT CHECKED VIA A&A. RIGHT SWAN-RENE NOTED TO THE RIGHT NECK ABOUT 49CM. MIDSTERNAL DRESSING C/D/I. SUBSTERNAL DRESSIN C/D/I WITH [address] A IS BIFURCATED TO A SINGLE CT. CT P HAS SCANT AMOUNT OF DRAINAGE. BOTH CONNECTED TO 20 OF SUCTION WITH NO AIR LEAK. R GROIN DRESSING C/D/I. RLE WRAPPED IN COBAN FROM ANKLE TO THIGH. DRESSING C/D/I. A SINGLE KARINE DRAIN NOTED MID LEG TO THE RLE. PULSES PALPABLE. RIGHT RADIAL KATHY NOTED WITH THE WRIST PROTECTOR ON. KATHY WAVE FORM POSITIONAL BUT WORKING AT THIS TIME. CALL LIGHT IN REACH. WILL CONT POC.
--- NOTE | 2019-03-01 07:39 | NUR ---
PT KEPT POINTING AT HER STOMACH. ASKED IF THE PT WAS IN PAIN AND SHE SHOOK HER HEAD NO. I ASKED HER IF SHE WAS NAUSEATED AND SHE SHOOK HER HEAD YES. RAMIRO GIVEN. SEE MAR.
--- NOTE | 2019-03-01 07:54 | NUR ---
DR LIANG AT THE PTS BEDSIDE. ABG BEING DONE. OK TO PULL EDD PER DR LIANG.
--- NOTE | 2019-03-01 07:55 | NUR ---
OK TO EXTUBATE.
--- NOTE | 2019-03-01 08:00 | NUR ---
PT EXTUBATED PER DR LIANG. PT PLACE ON 6L VIA NC. ENCOURAGE TCDB.
--- NOTE | 2019-03-01 08:03 | NUR ---
DR LIANG STATED TO GIVE 40MEQ OF K OVER 2 HOURS. GIVEN VIA BURETROL.
--- NOTE | 2019-03-01 08:40 | NUR ---
KATHY PULLED PER DR LIANG. DRESSING C//DI. WILL CONT POC
--- NOTE | 2019-03-01 09:00 | NUR ---
PT TOLERATING ICE CHIPS WELL. WILL CONT POC.
--- NOTE | 2019-03-01 09:30 | NUR ---
SWAN-RENE CATHETER PULLED PER DR LIANG ORDERS. PT TOLERATED WELL. PT INSTRUCTED TO TCDB QH AND TO USE HER IS 10X'S/H. PT COUGHING UP BROWN THICK SPUTUM. PT PULLS ABOUT 500 TO 750 ON HER IS. PT REQUESTED MORPHINE FOR CHEST PAIN. SEE MAR. AT THE PTS BEDSIDE. WILL CONT POC.
--- NOTE | 2019-03-01 11:04 | NUR ---
PO MEDS GIVEN WITH NO ISSUES.
--- NOTE | 2019-03-01 11:52 | OP ---
PATIENT NAME: CHRIS KINCAID MEDICAL RECORD: [id number] :41 LOCATION:D.CVI D.CV05 ADMISSION DATE:02/28/19 SURGEON: HENRY LIANG MD DATE OF OPERATION: 02/28/2019 SURGEON: Henry Liang MD CARTRIDGE FILLER: Jesus Manuel Aiken PROCEDURES PERFORMED: 1. Aortic valve replacement (21 mm pericardial bioprosthesis). 2. Ascending aortic replacement (30 mm Hemashield graft). 3. Coronary artery bypass graft times 1 (reverse saphenous vein graft from aorta to right coronary artery). 4. Right common femoral artery, cannulation. PREOPERATIVE DIAGNOSES: Bicuspid aortic valve, ascending aortic aneurysm, coronary artery disease. POSTOPERATIVE DIAGNOSES: Bicuspid aortic valve, ascending aortic aneurysm, coronary artery disease. ANESTHESIA: General endotracheal anesthesia. ESTIMATED BLOOD LOSS: Total cardiopulmonary bypass with 3 packed red blood cell, 2 platelet and 4 FFP. COMPLICATIONS: None. SPECIMENS: 1. Ascending aorta. 2. Aortic valve leaflets. CONDITION: Stable. DISPOSITION: CV ICU. OPERATIVE FINDINGS: 1. Transesophageal echocardiography revealed mild aortic insufficiency, not significantly increased by increasing the pressure, but a bicuspid aortic valve with trace mitral regurgitation. No perivalvular leak after aortic valve replacement. 2. Right femoral artery cannulation and greater saphenous vein harvested open from the right groin with one separate bridging incision. 3. A 5 cm mid ascending aorta, but 3.5 cm distal ascending aorta allowing room for clamping at the distal ascending aorta. 4. Congenitally bicuspid aortic valve with fusion of left-right valvular cusp. 5. Right coronary artery, 2.5 mm. OPERATIVE INDICATION: Bicuspid aortic valve with increasing symptoms, ascending aortic aneurysm and coronary artery disease. DESCRIPTION OF PROCEDURE: The patient was brought to the operative suite. General anesthesia was obtained. The patient was prepped and draped. Vertical incision was made over the right groin, the right common femoral artery, OPERATIVE REPORT [id number] CHRIS KINCAID profunda and superficial femoral artery as well its branches were dissected out and encircled with vessel loops. Greater saphenous vein was dissected out and a separate bridging incision was made until a total full length of greater saphenous vein was harvested. Side branches were tied. Mediastinotomy incision was made. Subcutaneous tissue was divided by electrocautery. The sternum was divided with a saw. The pericardium was opened. Heparin was given. Right common femoral artery was opened and cannulated. Dual stage venous cannula was inserted, retrograde cardioplegic cannula was inserted. The patient was placed on cardiopulmonary bypass. Sites for distal anastomosis was selected. The patient was cooled. Crossclamp was placed. Cardioplegia was given antegrade and retrograde and retrograde cardioplegia was repeated at 15 to 20 minute intervals during the crossclamp time. Aorta was transected in the mid ascending aorta. Distal aorta was transected leaving a cuff for distal anastomosis and then the aorta was transected at the sinotubular junction. Valve leaflets were removed. Interrupted pledgeted sutures were placed from ventricular to aortic side and the valve was sized to 21 mm, a 21 mm valve was lowered into place. A right superior pulmonary vein cannula had been placed. The proximal and distal ascending aortic anastomosis was completed. An opening was made in the mid anterior portion of the graft for proximal anastomosis. Distal anastomosis was performed in standard technique. Proximal anastomosis was performed, but prior to tying down the anastomosis left ventricular apex was de-aired, and then with the patient in Trendelenburg position the cross clamp was removed. Proximal anastomosis was tied down. Vein graft was de-aired. Leakage sites at the proximal anastomotic site of the vein graft to the aortic graft as well as the distal anastomotic site of the ascending aortic graft to the aorta were repaired, and then with the patient fully rewarmed and in sinus rhythm the patient was weaned from cardiopulmonary bypass. The patient was decannulated. At the groin, the artery was repaired with a running 6-0 Prolene. Later, the incisions were closed in 2 layers and skin clips. Protamine was given. Products were infused. Several sutures were again used for hemostasis. Once hemostasis was assured, thorough antibiotic irrigation was undertaken. All vent sites and cannulation sites were inspected. Drains were placed in the mediastinum and the right pleural cavity. Pericardial fat was approximated over the aortic graft. Sternum was closed with wires. Fascia was closed. Subcutaneous tissue was closed. Skin was closed. Dermabond was placed. The needle and sponge counts were reported as correct. The patient was taken to ICU in stable condition. TRANSINT:[id number] Voice Confirmation ID: [id number] DOCUMENT ID: [id number] HENRY LIANG MD at 1152 CC: BRANDI SAUCEDO M.D. [id number] DICTATION DATE: 02/28/19 1606 CORONER FORENSIC TECHNICIAN: 02/28/19 1724 ADM IN [place] [id number] [place] [id number]
--- NOTE | 2019-03-01 13:00 | NUR ---
FULL CHD BATH GIVEN. PT DANGLED AT THE BEDSIDE. CT P HAD 350ML OF BLOODY DRAINAGE NOTED. NO CHANGE IN PRESSURE OR RATE. PT DENIES LIGHTHEADEDNESS. DR LIANG PAGED AND NOTIFIED. NO NEW ORDERS AT THIS TIME. PT ASSISTED OOB AND INTO THE BEDSIDE CHAIR. PT TOLERATED WELL. REQUEST PAIN PILL. SEE NOV.
--- NOTE | 2019-03-01 15:15 | NUR ---
TINTER PHOTOGRAPH CAME AND SPOKE WITH THE PT PER DR LIANG. PT STATED TO COME BACK WHENEVER HER WAS PRESENT AT 1400
--- NOTE | 2019-03-01 16:49 | NUR ---
SPOKE WITH THE FAMILY MEMBER () ABOUT ISSUES THAT HE WANTED TO SPEAK WITH THE GOLD FRAME ASSEMBLER ABOUT. HE STATED THAT HE IS OK THAT IF I RELAYED A MESSAGE TO HER. PT'S WAS PLEASED.
--- NOTE | 2019-03-01 19:08 | NUR ---
REPORT RECEIVED, SHIFT ASSESSMENT COMPLETED PER FLOW SHEET. PPP. AWAKE AND ALERT. NO ACUTE DISTRESS NOTED AT THIS TIME. SEE FLOW SHEET FOR COMPLETE ASSESSMENT. WILL CONTINUE TO MONITOR. CALL LIGHT WITHIN REACH.
--- NOTE | 2019-03-01 20:10 | MORECARE ---
CASE MANAGEMENT DISCHARGE SUMMARY PATIENT: CHRIS OLIVER UNIT: [id number] ADM DATE: 02/28/19 AGE: 73 : 43 SEX: F ROOM/BED: [facility] AUTHOR: MARÍA ELENA MO PHYSICIAN: REFERRING PHYSICIAN: AURORA LIANG MD DATE OF SERVICE: 03/01/19 Discharge Plan Patient Name: CHRIS OLIVER [facility] [facility] 1945 Planned Disposition: Home Anticipated Discharge Date: Discharge Date: Expected LOS: Initial Reviewer: [email or web address] Initial Review Date: 03/01/2019 Generated: 03/01/19 9:10 pm DCPIA - Discharge Planning Initial Assessment Updated by [email or web address]: Nadia Maharaj on 03/01/19 8:09 pm * Is the patient Alert and Oriented? Yes * How many steps to enter\exit or inside your home? * PCP Luis Angel * [facility] * Preadmission Environment Home with Family * ADLs Independent * Equipment Cane * List name and contact numbers for known caregivers / representatives who currently or will assist patient after discharge: Lavelle Oliver - spouse - [phone]; [phone] * Verbal permission to speak to the caregivers and representatives has been obtained from the patient. Yes * Community resources currently utilized None * Additional services required to return to the preadmission environment? No * Can the patient safely return to the preadmission environment? Yes * Has this patient been hospitalized within the prior 30 days at any hospital? No Patient Name: CHRIS OLIVER Page [id number] at 2009 All edits/amendments must be made on the electronic document DICTATION DATE: 03/01/192009 DISTRICT SALES MANAGER: TORIN 03/01/192009 RPT#: [id number] DC DATE: STATUS: ADM IN [facility] [address] [place] [address] END OF REPORT
--- NOTE | 2019-03-01 20:17 | MORECARE ---
CASE MANAGEMENT DISCHARGE SUMMARY PATIENT: CHRIS OLIVER UNIT: [id number] ADM DATE: 02/28/19 AGE: 73 : 43 SEX: F [facility] AUTHOR: MARÍA ELENA MO PHYSICIAN: REFERRING PHYSICIAN: AURORA LIANG MD DATE OF SERVICE: 03/01/19 Discharge Plan Patient Name: CHRIS OLIVER Facility: [facility]:[place] : 1945 Planned Disposition: Home Anticipated Discharge Date: Discharge Date: Expected LOS: Initial Reviewer: [email or web address] Initial Review Date: 03/01/2019 Generated: 03/01/19 9:17 pm Comments DCP- Discharge Planning Updated by [email or web address]: Nadia Maharaj on 03/01/19 7:[address] Patient Name: CHRIS OLIVER Admission Status: Urgent Accout number: [id number] Admission Date: 02-28-2019 : 1945 Admission Diagnosis: Attending: AURORA LIANG Current LOS: 1 Anticipated DC Date: Planned Disposition: Home Primary Insurance: MEDICARE A & B Discharge Planning Comments: CM met with patient and spouse (Lavelle) at bedside after explaining CM role and obtaining verbal consent. Patient lives at home with her Lavelle and plans to return there upon discharge. Patient feels this would be a safe discharge. CM discussed availability / needs of home health and medical equipment. Patient denies any discharge needs at this time. Patient may need walk test if 02 required at discharge. Patient states she will have her drive her home upon discharge. CM will continue to follow and assist as needed with discharge planning / needs. Recycling Collections Driver: Nadia Maharaj DCPIA - Discharge Planning Initial Assessment Updated by [id number]: Nadia Maharaj on 03/01/19 8:09 pm * Is the patient Alert and Oriented? Yes * How many steps to enter\exit or inside your home? * PCP Luis Angel * [facility] * Preadmission Environment Home with Family * ADLs Independent * Equipment Cane * List name and contact numbers for known caregivers / representatives who currently or will assist patient after discharge: Lavelle Oliver - spouse - [phone]; [phone] * Verbal permission to speak to the caregivers and representatives has been obtained from the patient. Yes * Community resources currently utilized None * Additional services required to return to the preadmission environment? No * Can the patient safely return to the preadmission environment? Yes * Has this patient been hospitalized within the prior 30 days at any hospital? No Last DP export: 03/01/19 7:10 p Patient Name: CHRIS OLIVER Page [id number] at 2017 All edits/amendments must be made on the electronic document DICTATION DATE: 03/01/192015 HOOK LOADER: TORIN 03/01/192015 RPT#: [id number] DC DATE: STATUS: ADM IN [facility] [address] [place] [address] END OF REPORT
--- NOTE | 2019-03-01 21:21 | NUR ---
SCHEDULED MEDS GIVEN, WATER PROVIDED. NO DIFFICULTY SWALLOWING.
--- NOTE | 2019-03-01 21:40 | NUR ---
PATIENT IN UNCONTROLLED AFIB, SCHEDULED PO AMIODARONE HAS BEEN GIVEN, CALLED AND SPOKE TO DR. LIANG. NEW ORDERS RECEIVED, SEE ORDERS FOR DETAILS.
--- NOTE | 2019-03-01 21:46 | NUR ---
AMIODARONE BOLUS INFUSING NOW ORDERED BY DR. LIANG, PATIENT IN AFIB. DAUGHTER AT BEDSIDE, INFORMED HER AND PATIENT OF SITUATION AND DOCTOR'S ORDERS. PATIENT AND DAUGHTER DENY NEEDS. CALL LIGHT WITHIN REACH. WILL CONTINUE TO MONITOR.
--- NOTE | 2019-03-01 22:40 | NUR ---
PATIENT REMAINS IN AFIB, CALLED AND SPOKE TO DR. LIANG, NEW ORDERS RECEIVED.
--- NOTE | 2019-03-01 23:19 | NUR ---
BP 105/59. MAP 69. REMAINS IN AFIB. HR 125. DIGOXIN GIVEN NOW PER DR. LIANG'S ORDERS. WILL CONTINUE TO MONITOR.
[2019-03-02] VITALS (53 sets, daily range): BP systolic 83–126; BP diastolic 28–71
--- NOTE | 2019-03-02 | NUR ---
PATIENT CONVERTED TO NORMAL SINUS RHYTHM. HR 88. BP STABLE. NEOSYNEPHRINE TURNED OFF.
--- NOTE | 2019-03-02 01:00 | NUR ---
RESTING, NO ACUTE DISTRESS NOTED, DENIES PAIN OR NEEDS. CALL LIG WITHIN REACH. WILL CONTINUE TO MONITOR.
--- NOTE | 2019-03-02 03:04 | NUR ---
REASSESSMENT COMPLETED PER FLOW SHEET, SEE FOR DETAILS. NO ACUTE DISTRESS NOTED. DENIES NEEDS. CALL LIGHT WITHIN REACH. WILL CONTINUE TO MONITOR.
--- NOTE | 2019-03-02 03:38 | NUR ---
PATIENT BACK IN AFIB, 5 MG CARDIZEM BOLUS GIVEN PER DR. LIANG'S ORDERS. 0400 REMAINS IN AFIB, CARDIZEM DRIP INTIATED PER DR. LIANG'S ORDERS.
--- NOTE | 2019-03-02 04:20 | NUR ---
BP 94/50. MAP 58. NEOSYNEPHRINE INCREASED TO 0.2 MCG/KG/MIN.
--- NOTE | 2019-03-02 05:18 | NUR ---
PATIENT REMAINS IN AFIB, CALLED AND SPOKE TO DR. LIANG NEW ORDERS RECEIVED. SEE ORDERS FOR DETAILS.
--- NOTE | 2019-03-02 05:30 | NUR ---
CARDIZEM INCREASED TO 10 ML/HR PER DR. LIANG'S ORDERS.
--- NOTE | 2019-03-02 06:00 | NUR ---
COMPLETE BED BATH GIVEN, COMPLETE BED LINEN CHANGE. ASSISSTED OOBT TO CHAIR. TOLERATED ALL WELL. CALL LIGHT AND BELONGINGS WITHIN REACH.
[2019-03-02 06:07] LABS: HEMATOCRIT 28.1 % (36.0-48.0); HEMOGLOBIN 9.6 g/dL (12-16); MCH 30.5 pg (26.0-34.0); MCHC 34.2 g/dL (31.0-37.0); MEAN PLATELET VOLUME 10.7 fL (7.4-10.4); RBC 3.15 10x6/uL (4.00-5.40)
[2019-03-02 06:15] LABS: MCV 89.2 fL (80.0-100.0); WBC 14.7 10x3/uL (4.8-10.8)
[2019-03-02 06:25] LABS: ALBUMIN 2.1 g/dL (3.4-5.0); ALKALINE PHOSPHATASE 43 U/L (46-116); ALT (SGPT) 20 U/L (10-68); CALC OSMOLALITY 281 mosm/kg (275-300); CALCIUM 7.6 mg/dL (8.5-10.1); CHLORIDE - SERUM 105 mmol/L (98-107); CREATININE - SERUM 0.6 mg/dL (0.6-1.3); GLUCOSE 140 mg/dL (74-106); POTASSIUM - SERUM 3.9 mmol/L (3.5-5.1); PROTEIN - SERUM 4.9 g/dL (6.4-8.2); SODIUM 140 mmol/L (136-145); UREA NITROGEN 14 mg/dL (7-18); eGFR NON AFRICAN AMERICAN > 90 mL/min (90-120)
--- NOTE | 2019-03-02 06:45 | NUR ---
SPOKE TO DR. LIANG, INFORMED HIM THAT PATIENT REMAINS IN AFIB HR 124 AT THIS TIME. NO NEW ORDERS RECEIVED.
--- NOTE | 2019-03-02 07:45 | NUR ---
PT UP IN CHAIR. AA&OX4. RATES PAIN 5/10 AT INCISION SITE. REPORTS NAUSEA. IS ON 6L OF 02 VIA NC. HAS RIJ WITH CARDIZEM AT 10ML/HR, PLASMOLYTE AT 100ML/HR, AND ZINACEF AT 11.4ML/HR. MIDSTERNAL DRESSIN IN PLACE. CTX 3 SUBTERNAL. TPM WIRES COILED AND SECURED. CT TO 20CM SUCTION. NO AIR LEAK NOTED. RL HARVEST. KARINE DRAIN IN PLACE WITH BLOODY DRAINAGE NOTED, DRESSING C/D/I. KWAKU HOSE ON BILATERALLY. COMPLETE SHIFT ASSESSMENT CHARTED IN FLOWSHEET. CALL LIGHT IN REACH. WILL CONTINUE TO MONITOR.
--- NOTE | 2019-03-02 10:00 | NUR ---
PT RATED PAIN 10/10 AT INCISIONAL SITE. VERY RESTLESS. MORPHINE 2MG IV GIVEN FOR PAIN. WILL COTNINUE TO MONITOR.
--- NOTE | 2019-03-02 10:30 | NUR ---
CARDIZEM DRIP DECREASED TO 5ML/HR PER DR. LIANG.
--- NOTE | 2019-03-02 10:45 | NUR ---
DR LIANG AT BEDSIDE TO PULL CHEST TUBES. ASKED FOR 1MG VERSED TO BE GIVEN TO PATIENT PRIOR TO CHEST TUBE REMOVAL.
--- NOTE | 2019-03-02 10:55 | NUR ---
DR. LIANG AT BEDSIDE REMOVING CHEST TUBES.
--- NOTE | 2019-03-02 11:03 | NUR ---
ESTER AND CASIMIRO GAMBINO'Obdulia PER DR. LIANG.
--- NOTE | 2019-03-02 13:25 | TEE ---
PATIENT:CHRIS KINCAID MEDICAL RECORD: [id number] LOCATION:[place] [address] AGE OF PATIENT: 73 ADMISSION DATE: 02/28/19 SEX: F REFERRING PHYSICIAN: INTERPRETING PHYSICIAN: SHIRLEY SALAZAR MD TRANSESOPHAGEAL ECHOCARDIOGRAM Date: 02/28/19 JAMES CHARGE Y INDICATIONS: CABG/AVR/ASCENDING AORTA REPLACEMENT PREMEDICATIONS: PATIENT'S RESPONSE PROCEDURE DOPPLER MEASUREMENTS: LVIT LA PA RA LVOT RVOT Asc. Ao AV Gradient Peak 6.5 AV Mean 4.1 AV Area 0.8 MV Gradient Peak MV Mean MV Area INTERPRETATION: LVd: 4.6 cm LVs: 3.7 cm LVOT diam: 1.8 cm LA: 2.9 cm Doppler: 2-D: COLOR FLOW DOPPLER NORMAL SALINE STUDY: MISCELLANOUS: DIAGNOSIS: PLAN: Talent Acquisition Operations Manager:Tra Sanches Computer Systems Engineer: Katty JIMÉNEZ COMMENTS: DATE OF SERVICE: 02/28/2019 PROCEDURE: Transesophageal echo evaluation of valvular structures during bypass surgery and aortic valve, ascending aortic replacement. FINDINGS: 1. Left ventricular chamber size is within normal limits. Left ventricular systolic function is lower limits of normal to mildly depressed at 45%. TRANSESOPHAGEAL ECHOCARDIOGRAM REPORT [id number] CHRIS KINCAID 2. Left atrium, right atrium, and right ventricular chamber sizes are within normal limits. 3. Valvular structures: Aortic valve is a bicuspid valve with aneurysmal dilatation of the ascending aorta. The remaining valvular structures have normal structure and motion. 4. Doppler interrogation reveals [id number] mitral regurgitation, no other valvular insufficiency or stenosis. 5. No evidence of pericardial effusion or left ventricular thrombus. TRANSINT:[id number] Voice Confirmation ID: [id number] DOCUMENT ID: [id number] at 1325 CC: [id number] DICTATION DATE: 02/28/19 1702 CRANE OPERATOR: 03/01/19 0255 ADM IN [facility] [address] [place] [address]
--- NOTE | 2019-03-02 15:15 | NUR ---
RE-ASSESSMENT COMPLETED. NOT ACUTE CHANGES FROM PREVIOUS ASSESSMENT. PT TRANSFERRED TO CHAIR WITH MINIMAL ASSIST. CT REMOVED EARLIER. KARINE DRAIN REMAINS IN RLE. WILL CONTINUE TO MONITOR.
--- NOTE | 2019-03-02 16:41 | NUR ---
MEAL TRAY DELIVERED AND SET UP. SPOUSE AT BEDSIDE. WILL CONTINUE TO MONITOR.
--- NOTE | 2019-03-02 18:29 | NUR ---
TRASFERRED PT TO BED WITH MINIMAL ASSISTANCE. EMPTIED 60ML OF SEROSANGUINOUS DRAINAGE FROM KARINE DRAIN. DIET COKE PROVIDED PER PT REQUEST. NO FURTHER NEED AT THIS TIME. WILL CONTINUE TO MONITOR.
--- NOTE | 2019-03-02 18:31 | NUR ---
RLE DRESSING CHANGED PER ORDERS.
--- NOTE | 2019-03-02 19:00 | NUR ---
NO VISUAL CUES OF DISTRESS NOTED. VS STABLE. DENIES ANY OTHER NEEDS. WILL MONITOR.
--- NOTE | 2019-03-02 21:00 | NUR ---
VS STABLE NO VISUAL CUES OF DISTRESS NOTED. FAMILY AT BEDSIDE. WILL CONTINUE TO MONITOR.
--- NOTE | 2019-03-02 21:00 | NUR ---
VITAL SIGNS STABLE. FAMILY MEMBER AT BEDSIDE. NO VISUAL CUES OF DISTRESS NOTED. DENIES ANY OTHER NEEDS. WILL CONTINUE TO MONITOR.
--- NOTE | 2019-03-02 23:00 | NUR ---
VS STABLE. NO VISUAL CUES OF DISTRESS NOTED. WILL CONTINTUE TO MONITOR.
[2019-03-03] VITALS (24 sets, daily range): BP systolic 90–113; BP diastolic 53–71
--- NOTE | 2019-03-03 01:00 | NUR ---
VS STABLE. NO VISUAL CUES OF DISTRESS NOTED. WILL CONTINTUE TO MONITOR.
--- NOTE | 2019-03-03 02:51 | NUR ---
VS STABLE. NO VISUAL CUES OF DISTRESS NOTED. WILL CONTINTUE TO MONITOR.
--- NOTE | 2019-03-03 05:00 | NUR ---
VS STABL. NO VISUAL CUES OF DISTRESS NOTED. WILL CONTINUE TO MONITOR.
[2019-03-03 06:15] LABS: HEMATOCRIT 25.1 % (36.0-48.0); HEMOGLOBIN 8.5 g/dL (12-16); MCH 30.6 pg (26.0-34.0); MCHC 33.9 g/dL (31.0-37.0); MCV 90.3 fL (80.0-100.0); RBC 2.78 10x6/uL (4.00-5.40); RDW 15.1 % (11.5-14.5); WBC 12.8 10x3/uL (4.8-10.8)
[2019-03-03 06:25] LABS: ALBUMIN 2.1 g/dL (3.4-5.0); ALKALINE PHOSPHATASE 42 U/L (46-116); ALT (SGPT) 22 U/L (10-68); CALC OSMOLALITY 269 mosm/kg (275-300); CALCIUM 7.8 mg/dL (8.5-10.1); CHLORIDE - SERUM 102 mmol/L (98-107); CREATININE - SERUM 0.5 mg/dL (0.6-1.3); GLUCOSE 109 mg/dL (74-106); POTASSIUM - SERUM 3.9 mmol/L (3.5-5.1); SODIUM 135 mmol/L (136-145); eGFR NON AFRICAN AMERICAN > 90 mL/min (90-120)
[2019-03-03 06:35] LABS: UREA NITROGEN 10 mg/dL (7-18)
--- NOTE | 2019-03-03 17:59 | NUR ---
0700-RECIEVED AWAKE AND ALERT UP IN CHAIR-SR ON MONITOR 0830HUSBAND AT BEDSIDE-STATUS REPORT GIVEN 1030-NOTED AFIB ON MONITOR-DR JAY NOTIFIED-K LEVEL DRAWN 1115-DR JAY AT BEDSIDE -DR LEWIS GARY DIRECTED 1140-RETURN CALL FROM DR SAUCEDO-ORDERS RECIEVED AND NOTED- 1200-CARDIZEM 5MG IVP GIVEN-HR [phone]-ASSISTED PT TO BED WITH 2 STAFF 1230-HR 90-AFIB 1300[facility] 1330-FAMILY AT BEDSDI 1400-VALLE CATH D/C'D ORDERED AND PER POLICY 1630-ASSISTED PT TO BEDSIDE CHAIR-TOLERATED WELL 1742-NOTED CONVERSION TO SR ON MONITOR 1800-PT PLACED SELF IN BED WITH ASSISTANCE OF -REMAINS SR ON MONITOR
--- NOTE | 2019-03-03 19:00 | NUR ---
SHIFT ASSESSMENT COMPLETE. NO VISUAL CUES OF DISTRESS NOTED. WILL CONTINUE TO MONITOR.
[2019-03-03 19:44] LABS: MAGNESIUM - SERUM 2.1 mg/dL (1.8-2.4)
[2019-03-03 19:45] LABS: POTASSIUM - SERUM 7.1 mmol/L (3.5-5.1)
--- NOTE | 2019-03-03 22:15 | NUR ---
1934 EKG CHANGE NOTED STAT LABS DRAWN STAT ABG. VSS. HR 90-110. WILL CONTINUE TO MONITOR. CARDIO ACTIVE PO MEDS GIVEN EARLY. 2029 DR JAY INFORMED OF PT CHANGES. 5MEQ K TO BE GIVEN. LAB SKEWED RESULTS REPORTED. 2153 PT CONVERTED TO NS. VSS WILL CONTINUE TO MONITOR.
--- NOTE | 2019-03-03 23:20 | NUR ---
RHYTHM CHANGE NOTED. VSS WILL CONTINUE TO MONITOR.
[2019-03-04] VITALS (24 sets, daily range): BP systolic 86–114; BP diastolic 50–107
--- NOTE | 2019-03-04 01:00 | NUR ---
VS STABLE. NO VISUAL CUES OF DISTRESS NOTED. WILL CONTINUE TO MONITOR.
--- NOTE | 2019-03-04 03:00 | NUR ---
VS STABLE. NO VISUAL CUES OF DISTRESS NOTED. WILL CONTINUE TO MONITOR.
[2019-03-04 05:39] LABS: HEMATOCRIT 25.4 % (36.0-48.0); HEMOGLOBIN 8.4 g/dL (12-16); MCH 30.3 pg (26.0-34.0); MCHC 33.1 g/dL (31.0-37.0); MCV 91.7 fL (80.0-100.0); MEAN PLATELET VOLUME 10.7 fL (7.4-10.4); RBC 2.77 10x6/uL (4.00-5.40); RDW 14.8 % (11.5-14.5); WBC 10.9 10x3/uL (4.8-10.8)
[2019-03-04 05:58] LABS: ALBUMIN 2.1 g/dL (3.4-5.0); ALKALINE PHOSPHATASE 48 U/L (46-116); ALT (SGPT) 26 U/L (10-68); BILIRUBIN - TOTAL 0.34 mg/dL (0.2-1.3); CALC OSMOLALITY 269 mosm/kg (275-300); CHLORIDE - SERUM 101 mmol/L (98-107); CREATININE - SERUM 0.6 mg/dL (0.6-1.3); GLUCOSE 115 mg/dL (74-106); POTASSIUM - SERUM 3.8 mmol/L (3.5-5.1); PROTEIN - SERUM 5.1 g/dL (6.4-8.2); SODIUM 135 mmol/L (136-145); UREA NITROGEN 10 mg/dL (7-18); eGFR NON AFRICAN AMERICAN > 90 mL/min (90-120)
--- NOTE | 2019-03-04 14:38 | NUR ---
1400: IV STARTED IN L FOREARM WITH 20G ON 1ST ATTEMPT. 1410: R IJ CORDIS DC'D. MANUAL PRESSURE HELD X 2 MIN. SITE DRESSED WITH 2X2 AND TEGADERM.
--- NOTE | 2019-03-04 20:30 | NUR ---
PT IS AWAKE AND ALERT. DENIES PAIN. VSS. NSR PER CM. DAUGHTER AT BEDSIDE VISITING.
--- NOTE | 2019-03-04 21:45 | NUR ---
OOB TO BATHROOM WITH ASSISTANCE. VOIDED,
[2019-03-05] VITALS (24 sets, daily range): BP systolic 93–114; BP diastolic 1–71
--- NOTE | 2019-03-05 03:00 | NUR ---
OOB TO BATHROOM. VOIDED
[2019-03-05 04:03] LABS: HEMATOCRIT 24.7 % (36.0-48.0); HEMOGLOBIN 8.1 g/dL (12-16); MCH 30.3 pg (26.0-34.0); MCHC 32.8 g/dL (31.0-37.0); MCV 92.5 fL (80.0-100.0); MEAN PLATELET VOLUME 10.2 fL (7.4-10.4); RBC 2.67 10x6/uL (4.00-5.40); RDW 14.9 % (11.5-14.5); WBC 9.1 10x3/uL (4.8-10.8)
[2019-03-05 04:29] LABS: ALBUMIN 2.1 g/dL (3.4-5.0); ALKALINE PHOSPHATASE 50 U/L (46-116); ALT (SGPT) 30 U/L (10-68); BILIRUBIN - TOTAL 0.32 mg/dL (0.2-1.3); CALC OSMOLALITY 274 mosm/kg (275-300); CALCIUM 8.1 mg/dL (8.5-10.1); CARBON DIOXIDE 30.9 mmol/L (21.0-32.0); CHLORIDE - SERUM 102 mmol/L (98-107); CREATININE - SERUM 0.6 mg/dL (0.6-1.3); GLUCOSE 115 mg/dL (74-106); POTASSIUM - SERUM 3.7 mmol/L (3.5-5.1); PROTEIN - SERUM 5.1 g/dL (6.4-8.2); SODIUM 138 mmol/L (136-145); UREA NITROGEN 8 mg/dL (7-18); eGFR NON AFRICAN AMERICAN > 90 mL/min (90-120)
--- NOTE | 2019-03-05 08:54 | NUR ---
0700 RECEIVED UP IN CHAIR. HR NS, O2 6L. L FOREARM PERIPHERAL DRESSING CDI. SALINE LOCKED. MIDSTERNAL AND SUBSTERNAL DRESSING CDI. RLE HARVEST SITE CDI WITH KARINE DRAIN COMPRESSED. 0815 PT WENT INTO AFIB RATE 110'S. DR LIANG NOTIFIED. 0845 ORDERS FOR MIDLINE. DIMITRI NOTIFIED. AM MEDS AND BREAKFAST WITHOUT DIFFICULTY.
--- NOTE | 2019-03-05 09:26 | NUR ---
[address] AZUL WINTER'S NURSE NOTIFIED.
--- NOTE | 2019-03-05 10:02 | NUR ---
1000 L PERIPHERAL IV REMOVED.
--- NOTE | 2019-03-05 11:51 | NUR ---
[address] JAY NOTIFIED. 1125 PT CONTINUALLY BETWEEN AFIB AND NS. AYANA, DR LIANG'S NURSE NOTIFIED.
--- NOTE | 2019-03-05 14:16 | NUR ---
Nutrition follow up Diet advanced to regular on Friday 03/02 Pt reports she started to eat yesterday Pt reports tolerating meals well She is interested in trying an Ensure. Encouraged good intake to help with healing and strength maintenance Will send Ensure with dinner Weight 160lb RD following
--- NOTE | 2019-03-05 16:21 | NUR ---
1600 PT CONTINUALLY BETWEEN NSR WITH PAC'S AND AFIB. AMBULATED WITH THERAPY.
--- NOTE | 2019-03-05 16:47 | NUR ---
1600 SPOKE WITH KARLEE IN THE LAB ABOUT PRBC ORDER 1645 SPOKE WITH ETIENNE IN LAB, REQUESTED TYPE AND CROSS TO BE DRAWN
--- NOTE | 2019-03-05 17:35 | NUR ---
1700 ATE 100% OF DINNER
--- NOTE | 2019-03-05 17:51 | NUR ---
1750 SPOKE WITH ETIENNE IN LAB, SHE SAID BLOOD WOULD BE APX 10 MORE MINS
--- NOTE | 2019-03-05 18:30 | NUR ---
1820 [facility] INTIATED
[2019-03-06] VITALS (24 sets, daily range): BP systolic 85–120; BP diastolic 47–63
--- NOTE | 2019-03-06 05:00 | NUR ---
OOB TO BATHROOM WITH MINIMAL ASSISTANCE. DENIES PAIN. OCCASIONAL RYTHMN CHANGES NOTED, UNCONTROLLED A-FIB RATE 112-125. MOST OF THE SHIFT SHE HAS BEEN IN NSR.
[2019-03-06 09:18] LABS: HEMOGLOBIN 9.6 g/dL (12-16); LYMPHOCYTES 16.2 % (15-50); MCHC 34.3 g/dL (31.0-37.0); MCV 93.3 fL (80.0-100.0); MEAN PLATELET VOLUME 10.3 fL (7.4-10.4); NEUTROPHILS 76.2 % (40-80); RDW 15.4 % (11.5-14.5); WBC 8.9 10x3/uL (4.8-10.8)
[2019-03-06 09:27] LABS: PLATELET COUNT 274 10x3/uL (130-400)
[2019-03-06 09:28] LABS: CALC OSMOLALITY 279 mosm/kg (275-300); CALCIUM 8.2 mg/dL (8.5-10.1); CARBON DIOXIDE 30.9 mmol/L (21.0-32.0); CHLORIDE - SERUM 103 mmol/L (98-107); CREATININE - SERUM 0.7 mg/dL (0.6-1.3); GLUCOSE 144 mg/dL (74-106); POTASSIUM - SERUM 3.6 mmol/L (3.5-5.1); SODIUM 140 mmol/L (136-145); UREA NITROGEN 8 mg/dL (7-18); eGFR NON AFRICAN AMERICAN 86 mL/min (90-120)
--- NOTE | 2019-03-06 09:50 | NUR ---
0700 RECEIVED PT UP IN CHAIR. NSR RATE OF 80'S. 5L ON NASAL CANNULA. R MIDLINE. DRESSINGS CDI. KARINE DRAIN COMPRESSED. VITAL SIGNS STABLE. 0900 MEDS TAKEN, 100% OF BREAKFAST. 0930 TPM WIRES AND KARINE DRAIN DC'D BY MOY HADLEY.
--- NOTE | 2019-03-06 12:45 | NUR ---
1210 PT WENT INTO AFIB RATE 110'S. OCCASIONALLY HITTING 150'S. DR LIANG'S NURSE MOY NOTIFIED.
--- NOTE | 2019-03-06 13:18 | NUR ---
1300 AMBULATED 200 FT AND CONVERTED TO NORMAL SINUS.
--- NOTE | 2019-03-06 16:17 | NUR ---
1500 CHG BATH COMPLETE
--- NOTE | 2019-03-06 17:37 | NUR ---
1700 ATE 100% OF DINNER. FAMILY HERE FOR VISITATION.
--- NOTE | 2019-03-06 21:00 | NUR ---
DAUGHTER AT BEDSIDE. PT IS INDEPENDENTLY AMBULATORY. BM X 1. VSS. O2 4L NC. DENIES NEEDS
[2019-03-07] VITALS (23 sets, daily range): BP systolic 91–117; BP diastolic 46–68
--- NOTE | 2019-03-07 05:21 | NUR ---
PT HAS BEEN TO RESTROOM TO VOID X 4 TIMES. TWICE DURING THE NIGHT SHE HAS HAD BRIEF PERIODS OF UNCONTROLLED A-FIB. CONVERTS BACK TO NSR W/O INTERVENTION.
[2019-03-07 06:14] LABS: HEMATOCRIT 27.6 % (36.0-48.0); MCH 30.3 pg (26.0-34.0); MCHC 32.6 g/dL (31.0-37.0); MCV 92.9 fL (80.0-100.0); MEAN PLATELET VOLUME 10.1 fL (7.4-10.4); RBC 2.97 10x6/uL (4.00-5.40); RDW 15.4 % (11.5-14.5); WBC 8.8 10x3/uL (4.8-10.8)
[2019-03-07 06:23] LABS: CALCIUM 8.3 mg/dL (8.5-10.1); CARBON DIOXIDE 31.6 mmol/L (21.0-32.0); CHLORIDE - SERUM 105 mmol/L (98-107); CREATININE - SERUM 0.7 mg/dL (0.6-1.3); GLUCOSE 104 mg/dL (74-106); SODIUM 139 mmol/L (136-145); eGFR NON AFRICAN AMERICAN 86 mL/min (90-120)
[2019-03-07 06:27] LABS: CALC OSMOLALITY 276 mosm/kg (275-300); POTASSIUM - SERUM 4.4 mmol/L (3.5-5.1); UREA NITROGEN 11 mg/dL (7-18)
--- NOTE | 2019-03-07 07:57 | NUR ---
0700 RECEIVED IN BED. O2 4L. R MIDLINE PATENT. MIDSTERNAL AND SUBSTERNAL DRESSINGS OPEN TO AIR. RLE DRESSING CDI. SEE SHIFT ASSESSMENT FOR DETAILS.
--- NOTE | 2019-03-07 09:25 | NUR ---
Nutrition follow up Diet advanced to regular and pt eating 52% of meals on average Pt has been eating well and tolerating diet well per her reports Pt reports this morning she was nauseated and did not have much of an appetite Offered Ensure and pt reports she does not like the supplement Will continue to monitor and follow up
--- NOTE | 2019-03-07 09:39 | NUR ---
Nutrition follow up Regular diet with 88% average po intake Pt reports good appetite and tolerating meals well BM today Pt is drinking some Ensure Encouraged ensure daily while in the hospital and after discharge Pt has no questions about nutrition RD following
--- NOTE | 2019-03-07 10:00 | EC ---
PATIENT:CHRIS KINCAID DATE OF SERVICE: 02/28/19 SEX: F MEDICAL RECORD: [id number] DATE OF : 41 LOCATION:[place] [address] AGE OF PATIENT: 73 ADMISSION DATE: 02/28/19 REFERRING PHYSICIAN: INTERPRETING PHYSICIAN: SHIRLEY STEWARD MD ECHOCARDIOGRAM REPORT ECHO CHARGES 4 ECHO COMPLETE Date: 03/06/19 CLINICAL DIAGNOSIS: POST OP AVR/CABG ECHOCARDIOGRAPHIC MEASUREMENTS (adult normal given) AC root (d.<3.7cm) 3.1 cm LV Septum d (<1.2 cm> 1.3 cm Valve Excursion 1.2 cm LV Septum (systole) 1.4 cm Left Atria (s.<4.0cm> 2.5 cm LVPW d(<1.2cm) 1.2 cm RV (d.<2.3cm) 3.4 cm LVPW (sytole) 1.3 cm LV diastole(<5.6CM) 3.5 cm MV E-F(>70mm/sec) cm LV systole 2.5 cm LVOT Diameter 1.5 cm MV exc.(>10mm) 1.5 cm Est.ejection fraction (50-75%) % DOPPLER: LVIT cm/sec A 66.0 cm/sec E 113 cm/sec LA cm/sec RVSP 40 mmHg LVOT 132 cm/sec AOP1/2T m/s Asc. Ao 203 cm/sec RVOT 124 cm/sec RA cm/sec PA 135 cm/sec AV Gradient Peak 16.42mmHg AV Mean 10.61mmHg AV Area 1.1 cm MV Gradient Peak 5.36 mmHg MV Mean 1.93 mmHg MV Area cm COMMENTS: Residential Treatment Specialist: Tra LOYOLA Relay Repairer: 1 Dr. Steward TAPE# PACS Pericardial Effusion N DATE OF SERVICE: 03/06/2019 FINDINGS: 1. Left ventricular chamber size is within normal limits. Left ventricular systolic function is normal. Overall ejection fraction estimated at 55% to 60%. 2. Left atrium, right atrium, and right ventricular chamber sizes are within normal limits. 3. 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 The remaining valvular structures have normal structure and motion. ECHOCARDIOGRAM REPORT [id number] CHRIS KINCAID 4. Doppler interrogation elsewise reveals mild mitral regurgitation, [id number] tricuspid regurgitation, no other valvular insufficiency or stenosis. Pulmonary systolic pressure is estimated at 40 mmHg. 5. No evidence of pericardial effusion or left ventricular thrombus. TRANSINT:[id number] Voice Confirmation ID: [id number] DOCUMENT ID: [id number] SHIRLEY STEWARD MD at 1000 CC: [id number] DICTATION DATE: 03/06/19 155 CLOTH EXAMINER HAND: 03/06/192055 ADM IN [place] [id number] [place] [address]
--- NOTE | 2019-03-07 10:18 | NUR ---
1000 MIDLINE DRESSING CHANGED
--- NOTE | 2019-03-07 15:03 | NUR ---
1200 ATE 100% LUNCH 1500 AMBULATED 500FT WITH PT
--- NOTE | 2019-03-07 18:04 | NUR ---
ASSISTED BACK TO BED AFTER EATING 100% DINNER
--- NOTE | 2019-03-07 19:11 | NUR ---
REPORT RECEIVED, SHIFT ASSESSMENT COMPLETED PER FLOW SHEET. AAOX4. FOLLOWING COMMANDS. DENIES PAIN OR NEEDS. RADIAL PULSES WEAK TO PALPATION, PEDAL PULSES PALP. TELEMETRY MONITORING HR 79, SINUS RHYTHM. 3 L O2 VIA NC. COUGH/DEEP BREATHING AND USE OF IS ENCOURAGED. SEE FLOW SHEET FOR COMPLETE ASSESSMENT. CALL LIGHT WITHIN REACH. WILL CONTINUE TO MONITOR.
--- NOTE | 2019-03-07 21:06 | NUR ---
DAUGHTER AT BEDSIDE, PATIENT RESTING IN BED. SCHEDULED MEDS GIVEN. WATER PROVIDED. NO DIFFICULTY SWALLOWING. DENIES NEEDS. CALL LIGHT WITHIN REACH. WILL CONTINUE TO MONITOR.
--- NOTE | 2019-03-07 23:24 | NUR ---
REASSESSMENT COMPLETED PER FLOW SHEET, SEE FOR DETAILS. NO ACUTE CHANGES NOTED. DENIES NEEDS. CALL LIGHT WITHIN REACH. WILL CONTINUE TO MONITOR.
[2019-03-08] VITALS (10 sets, daily range): BP systolic 91–117; BP diastolic 46–70
--- NOTE | 2019-03-08 01:00 | NUR ---
RESTING, DENIES NEEDS, CALL LIGHT WITHIN REACH.
--- NOTE | 2019-03-08 03:21 | NUR ---
REASSESSMENT COMPLETED PER FLOW SHEET, SEE FOR DETAILS. ASSISSTED OOB TO BR, VOID X1, ASSISSTED BACK IN BED. DENIES OTHER NEEDS. CALL LIGHT WITHIN REACH. WILL CONTINUE TO MONITOR.
--- NOTE | 2019-03-08 05:30 | NUR ---
COMPLETE BED BATH GIVEN, COMPLETE BED LINEN CHANGE PROVIDED. ASSISSTED OOB TO CHAIR. CALL LIGHT AND BELONGINGS WITHIN REACH. DENIES NEEDS. WILL CONTINUE TO MONITOR.
--- NOTE | 2019-03-08 07:58 | NUR ---
REPORT RECEIVED FROM THE OFF GOING RN. SEE ASSESSMENT IN THE PTS FLOW SHEET. PT SITTIN UP IN THE BEDSIDE CHAIR. NO S/SX OF DISTRESS/DISCOMFORT NOTED. CURRENTLY IN NSR RATE 96. VSS AT THIS TIME. O2 AT 2L VIA NC. DRESSING NOTED TO RIGHT JUGULAR C/D/I. MIDSTERNAL INCISION CRIS. WELL APPROXIMATED. SUBSTERNAL DRESSING REMOVED. NO DRAINAGE NOTED. WELL APPROXIMATED. NO S/SX OF INFECTION NOTED. RLE DRESSING REMOVED. SMALL AMOUNT OF SEROUS DRAINAGE NOTED FROM OLD KARINE SITE. DRESSING REAPPLIED. INCISION TO THE RLE PROXIMAL TO THE GROIN WELL APPROIXMATED WITH NO DRAINAGE. SWATCH MAKER. BREAKFAST TRAY PROVIDED FOR THE PT. PT DENIES PAIN. CALL LIGHT IN REACH. WILL CONT POC.
[2019-03-08] MEDS ORDERED: ELIQUIS5 MG PO (09:03)
[2019-03-08] MEDS ORDERED: AMIODARONE HCL200 MG PO (09:04)
[2019-03-08] MEDS ORDERED: CARDIZEM CD180 MG PO (09:06)
[2019-03-08] MEDS ORDERED: LANOXIN125 MCG PO (09:06)
[2019-03-08] MEDS ORDERED: ASPIRIN EC81 M1 PO (09:08)
[2019-03-08] MEDS ORDERED: PERCOCET 5-3251 TAB PO (09:09)
[2019-03-08] MEDS ORDERED: COLACE100 MG PO (09:11)
--- NOTE | 2019-03-08 09:35 | NUR ---
AM MEDICATION GIVEN WITH NO ISSUES.
--- NOTE | 2019-03-08 10:24 | NUR ---
PT SITTING IN HER CHAIR. PT ON ROOM AIR. PT DESATED TO 82%. RECHECKED WITH A FINGER PULSE OX AND GOT THE SAME READING. O2 PLACED ON 2L. O2 SAT INCREASED TO 95%. DR LIANG'S NURSE, MOY HADLEY, NOTIFIED. CASE QUENTIN NOTIFIED.
--- NOTE | 2019-03-08 11:14 | MORECARE ---
CASE MANAGEMENT DISCHARGE SUMMARY PATIENT: CHRIS OLIVER UNIT: [id number] ADM DATE: 02/28/19 AGE: 73 : 43 SEX: F ROOM/BED: D[facility] AUTHOR: CHELY,MARÍA ELENA PHYSICIAN: REFERRING PHYSICIAN: AURORA LIANG MD DATE OF SERVICE: 03/08/19 Discharge Plan Patient Name: CHRIS OLIVER Facility: [facility]:[place] : 1945 Planned Disposition: Home Anticipated Discharge Date: Discharge Date: Expected LOS: Initial Reviewer: [email or web address] Initial Review Date: 03/01/2019 Generated: 03/08/19 12:14 pm DCP- Discharge Planning Updated by [email or web address]: Nadia Maharaj on 03/01/19 7:[address] Patient Name: CHRIS OLIVER Admission Status: Urgent Accout number: [id number] Admission Date: 02-28-2019 : 1945 Admission Diagnosis: Attending: AURORA LIANG Current LOS: 1 Anticipated DC Date: Planned Disposition: Home Primary Insurance: MEDICARE A & B Discharge Planning Comments: CM met with patient and spouse (Lavelle) at bedside after explaining CM role and obtaining verbal consent. Patient lives at home with her Lavelle and plans to return there upon discharge. Patient feels this would be a safe discharge. CM discussed availability / needs of home health and medical equipment. Patient denies any discharge needs at this time. Patient may need walk test if 02 required at discharge. Patient states she will have her drive her home upon discharge. CM will continue to follow and assist as needed with discharge planning / needs. Litigation Examiner: Nadia Maharaj DCPIA - Discharge Planning Initial Assessment Updated by [email or web address]: Nadia Maharaj on 03/01/19 8:09 pm * Is the patient Alert and Oriented? Yes * How many steps to enter\exit or inside your home? * PCP Luis Angel * [facility] * Preadmission Environment Home with Family * ADLs Independent * Equipment Cane * List name and contact numbers for known caregivers / representatives who currently or will assist patient after discharge: Lavelle Oliver - spouse - [phone]; [phone] * Verbal permission to speak to the caregivers and representatives has been obtained from the patient. Yes * Community resources currently utilized None * Additional services required to return to the preadmission environment? No * Can the patient safely return to the preadmission environment? Yes * Has this patient been hospitalized within the prior 30 days at any hospital? No External Providers External Provider: [facility] Next Contact Date: Service Request Date: Service Type: Resolution: Reviewer: Comments: Last DP export: 03/01/19 7:17 p Patient Name: CHRIS OLIVER Page [phone] at 1114 All edits/amendments must be made on the electronic document DICTATION DATE: 03/08/191112 GERIATRICS PHYSICIAN: TORIN 03/08/191112 RPT#: [id number] DC DATE: STATUS: ADM IN [facility] [address] [place] [address] END OF REPORT
--- NOTE | 2019-03-08 11:35 | NUR ---
MIDLINE DC'D WITH THE CATHETER TIP INTACT. PT TOELRATED WELL.
--- NOTE | 2019-03-08 11:44 | MORECARE ---
CASE MANAGEMENT DISCHARGE SUMMARY PATIENT: CHRIS OLIVER UNIT: [id number] ADM DATE: 02/28/19 AGE: 73 : 43 SEX: F ROOM/BED: D[facility] AUTHOR: CHELY,DOC PHYSICIAN: REFERRING PHYSICIAN: AURORA LIANG MD DATE OF SERVICE: 03/08/19 Discharge Plan Patient Name: CHRIS OLIVER Facility: [facility]:[place] : 1945 Planned Disposition: Home Anticipated Discharge Date: Discharge Date: Expected LOS: Initial Reviewer: [email or web address] Initial Review Date: 03/01/2019 Generated: 03/08/19 12:44 pm Comments DCP- Discharge Planning Updated by [email or web address]: Nadia Maharaj on 03/08/19 10:[address] CM was notified that patient is needing Home 02. Walk test completed. CM spoke with patient regarding [employer] company. Patient requested [facility]. CM contacted [facility] [phone] fax [phone] and faxed over records. D/C IMM explained and signed 03/08/19 @ 1005. CM will continue to follow and assist as needed with discharge planning / needs. DCP- Discharge Planning Updated by [email or web address]: Nadia Maharaj on 03/01/19 7:[address] Patient Name: CHRIS OLIVER Admission Status: Urgent Accout number: [id number] Admission Date: 02-28-2019 : 1945 Admission Diagnosis: Attending: AURORA LIANG Current LOS: 1 Anticipated DC Date: Planned Disposition: Home Primary Insurance: MEDICARE A & B Discharge Planning Comments: CM met with patient and spouse (Lavelle) at bedside after explaining CM role and obtaining verbal consent. Patient lives at home with her Lavelle and plans to return there upon discharge. Patient feels this would be a safe discharge. CM discussed availability / needs of home health and medical equipment. Patient denies any discharge needs at this time. Patient may need walk test if 02 required at discharge. Patient states she will have her drive her home upon discharge. CM will continue to follow and assist as needed with discharge planning / needs. Aquatics Coordinator: Nadia Maharaj DCPIA - Discharge Planning Initial Assessment Updated by [email or web address]: Nadia Maharaj on 03/01/19 8:09 pm * Is the patient Alert and Oriented? Yes * How many steps to enter\exit or inside your home? * PCP Luis Angel * [facility] * Preadmission Environment Home with Family * ADLs Independent * Equipment Cane * List name and contact numbers for known caregivers / representatives who currently or will assist patient after discharge: Lavelle Oliver - spouse - [phone]; [phone] * Verbal permission to speak to the caregivers and representatives has been obtained from the patient. Yes * Community resources currently utilized None * Additional services required to return to the preadmission environment? No * Can the patient safely return to the preadmission environment? Yes * Has this patient been hospitalized within the prior 30 days at any hospital? No Coverage Notice Reviewer: [id number] - Nadia Maharaj Notice Issued Date-Time: 03/08/2019 10:05 Notice Type: IM Discharge Notice Notice Delivered To: Patient Relationship to Patient: Self Striper Spray Gun Name: Delivery Method: HAND - Hand Delivered Audra Days: Prior Verbal Notification: Recipient Understood Notice: Yes Recipient Signature: Yes Med Rec Note Co-signed by Attending: Coverage Notice Comment: Last DP export: 03/08/19 10:14 a Patient Name: CHRIS OLIVER Page [id number] at 1144 All edits/amendments must be made on the electronic document DICTATION DATE: 03/08/19 1143 BELT LOOP CUTTER: TORIN 03/08/19 1143 RPT#: [id number] DC DATE: STATUS: ADM IN [facility] [address] [place] [address] END OF REPORT
--- NOTE | 2019-03-08 11:59 | NUR ---
LUNCH TRAY PROVIDED FOR THE PT. DISCHARGE PENDING BECAUSE OF O2 DELEVERY. VSS. NO DISTRESS/DISCOMFORT NOTED. CALL LIGHT IN REACH. WILL CONT POC.
--- NOTE | 2019-03-08 12:33 | MORECARE ---
CASE MANAGEMENT DISCHARGE SUMMARY PATIENT: CHRIS OLIVER UNIT: [id number] ADM DATE: 02/28/19 AGE: 73 : 43 SEX: F ROOM/BED: [facility] AUTHOR: CHELY,DOC PHYSICIAN: REFERRING PHYSICIAN: AURORA LIANG MD DATE OF SERVICE: 03/08/19 Discharge Plan Patient Name: CHRIS OLIVER Facility: [facility]:[place] : 1945 Planned Disposition: Home Anticipated Discharge Date: Discharge Date: Expected LOS: Initial Reviewer: [email or web address] Initial Review Date: 03/01/2019 Generated: 03/08/19 1:33 pm Comments DCP- Discharge Planning Updated by [id number]: Nadia Maharaj on 03/08/19 11:[address] CM contacted Renaldo @ [facility] to make sure they had received records. Renaldo stated they had received records and are working it up currently. CM explained that patient is in CVICU room 5 and that we are just awaiting 02 to discharge. DCP- Discharge Planning Updated by [email or web address]: Nadia Maharaj on 03/08/19 10:[address] CM was notified that patient is needing Home 02. Walk test completed. CM spoke with patient regarding [employer] company. Patient requested [facility]. CM contacted [facility] [phone] fax [phone] and faxed over records. D/C IMM explained and signed 03/08/19 @ 1005. CM will continue to follow and assist as needed with discharge planning / needs. DCP- Discharge Planning Updated by [email or web address]: Nadia Maharaj on 03/01/19 7:[address] Patient Name: CHRIS OLIVER Admission Status: Urgent Accout number: [id number] Admission Date: 02-28-2019 : 1945 Admission Diagnosis: Attending: AURORA LIANG Current LOS: 1 Anticipated DC Date: Planned Disposition: Home Primary Insurance: MEDICARE A & B Discharge Planning Comments: CM met with patient and spouse (Lavelle) at bedside after explaining CM role and obtaining verbal consent. Patient lives at home with her Lavelle and plans to return there upon discharge. Patient feels this would be a safe discharge. CM discussed availability / needs of home health and medical equipment. Patient denies any discharge needs at this time. Patient may need walk test if 02 required at discharge. Patient states she will have her drive her home upon discharge. CM will continue to follow and assist as needed with discharge planning / needs. Body Builder: Nadia Maharaj DCPIA - Discharge Planning Initial Assessment Updated by [email or web address]: Nadia Maharaj on 03/01/19 8:09 pm * Is the patient Alert and Oriented? Yes * How many steps to enter\exit or inside your home? * PCP Luis Angel * [facility] * Preadmission Environment Home with Family * ADLs Independent * Equipment Cane * List name and contact numbers for known caregivers / representatives who currently or will assist patient after discharge: Lavelle Oliver - spouse - [phone]; [phone] * Verbal permission to speak to the caregivers and representatives has been obtained from the patient. Yes * Community resources currently utilized None * Additional services required to return to the preadmission environment? No * Can the patient safely return to the preadmission environment? Yes * Has this patient been hospitalized within the prior 30 days at any hospital? No Coverage Notice Reviewer: [id number] - Nadia Maharaj Notice Issued Date-Time: 03/08/2019 10:05 Notice Type: IM Discharge Notice Notice Delivered To: Patient Relationship to Patient: Self Continuous Drier Helper Name: Delivery Method: HAND - Hand Delivered Audra Days: Prior Verbal Notification: Recipient Understood Notice: Yes Recipient Signature: Yes Med Rec Note Co-signed by Attending: Coverage Notice Comment: Last DP export: 03/08/19 10:44 a Patient Name: CHRIS OLIVER Page 35020 at 1233 All edits/amendments must be made on the electronic document DICTATION DATE: 03/08/19 1232 DIRECT MAIL CLERK: TORIN 03/08/19 1232 RPT#: [id number] [place] DATE: STATUS: ADM IN [facility] [address] [place] [address] END OF REPORT
--- NOTE | 2019-03-08 14:04 | NUR ---
DELAY IN DISCHARGE HOME DUE TO O2 COMPANY DECLINING O2 NEEDS. CASE MANAGEMENT WORKING ON ISSUES.
--- NOTE | 2019-03-08 14:19 | MORECARE ---
CASE MANAGEMENT DISCHARGE SUMMARY PATIENT: CHRIS OLIVER UNIT: [id number] ADM DATE: 02/28/19 AGE: 73 : 43 SEX: F ROOM/BED: [facility] AUTHOR: CHELY,DOC PHYSICIAN: REFERRING PHYSICIAN: AURORA LIANG MD DATE OF SERVICE: 03/08/19 Discharge Plan Patient Name: CHRIS OLIVER Facility: [facility]:[place] : 1945 Planned Disposition: Home Anticipated Discharge Date: Discharge Date: Expected LOS: Initial Reviewer: [id number] Initial Review Date: 03/01/2019 Generated: 03/08/19 3:18 pm Comments DCP- Discharge Planning Updated by [email or web address]: Nadia Maharaj on 03/08/19 11:[address] CM contacted Renaldo @ [facility] to make sure they had received records. Renaldo stated they had received records and are working it up currently. CM explained that patient is in CVICU room 5 and that we are just awaiting 02 to discharge. DCP- Discharge Planning Updated by [id number]: Nadia Maharaj on 03/08/19 10:[address] CM was notified that patient is needing Home 02. Walk test completed. CM spoke with patient regarding [employer] company. Patient requested [facility]. CM contacted [facility] [phone] fax [phone] and faxed over records. D/C IMM explained and signed 03/08/19 @ 1005. CM will continue to follow and assist as needed with discharge planning / needs. DCP- Discharge Planning Updated by [email or web address]: Nadia Maharaj on 03/01/19 7:[address] Patient Name: CHRIS OLIVER Admission Status: Urgent Accout number: [id number] Admission Date: 02-28-2019 : 1945 Admission Diagnosis: Attending: AURORA LIANG Current LOS: 1 Anticipated DC Date: Planned Disposition: Home Primary Insurance: MEDICARE A & B Discharge Planning Comments: CM met with patient and spouse (Lavelle) at bedside after explaining CM role and obtaining verbal consent. Patient lives at home with her Lavelle and plans to return there upon discharge. Patient feels this would be a safe discharge. CM discussed availability / needs of home health and medical equipment. Patient denies any discharge needs at this time. Patient may need walk test if 02 required at discharge. Patient states she will have her drive her home upon discharge. CM will continue to follow and assist as needed with discharge planning / needs. Fire Watchman: Nadia Maharaj DCPIA - Discharge Planning Initial Assessment Updated by [id number]: Nadia Maharaj on 03/01/19 8:09 pm * Is the patient Alert and Oriented? Yes * How many steps to enter\exit or inside your home? * PCP Luis Angel * [facility] * Preadmission Environment Home with Family * ADLs Independent * Equipment Cane * List name and contact numbers for known caregivers / representatives who currently or will assist patient after discharge: Lavelle Oliver - spouse - [phone]; [phone] * Verbal permission to speak to the caregivers and representatives has been obtained from the patient. Yes * Community resources currently utilized None * Additional services required to return to the preadmission environment? No * Can the patient safely return to the preadmission environment? Yes * Has this patient been hospitalized within the prior 30 days at any hospital? No External Providers External Provider: [facility] Next Contact Date: Service Request Date: Service Type: Resolution: Reviewer: Comments: Coverage Notice Reviewer: [id number] - Nadia Maharaj Notice Issued Date-Time: 03/08/2019 10:05 Notice Type: IM Discharge Notice Notice Delivered To: Patient Relationship to Patient: Self Contact Lens Inspector Name: Delivery Method: HAND - Hand Delivered Audra Days: Prior Verbal Notification: Recipient Understood Notice: Yes Recipient Signature: Yes Med Rec Note Co-signed by Attending: Coverage Notice Comment: Last DP export: 03/08/19 11:33 a Patient Name: CHRIS OLIVER Page [id number] at 1419 All edits/amendments must be made on the electronic document DICTATION DATE: 03/08/191417 TRANSPLANTER ORCHID: TORIN 03/08/191417 RPT#: [id number] IA DATE: STATUS: ADM IN [facility] [address] [place] [address] END OF REPORT
--- NOTE | 2019-03-08 14:28 | MORECARE ---
CASE MANAGEMENT DISCHARGE SUMMARY PATIENT: CHRIS OLIVER UNIT: [id number] ADM DATE: 02/28/19 AGE: 73 : 43 SEX: F [facility] AUTHOR: CHELY,DOC PHYSICIAN: REFERRING PHYSICIAN: AURORA LIANG MD DATE OF SERVICE: 03/08/19 Discharge Plan Patient Name: CHRIS OLIVER Facility: [facility]:[place] : 1945 Planned Disposition: Home Anticipated Discharge Date: Discharge Date: Expected LOS: Initial Reviewer: [email or web address] Initial Review Date: 03/01/2019 Generated: 03/08/19 3:28 pm Comments DCP- Discharge Planning Updated by [email or web address]: Nadia Maharaj on 03/08/19 1:[address] CM called and spoke with Luis A at [facility]. He stated that he didn't have a qualifying dx. for home 02. CM contacted [facility] [phone] and explained patient condition and hx of asthma and Jacy stated if you show that patient is getting up drafts or resp treatments then she should qualify. CM faxed records to [facility] for home 02. CM will continue to follow and assist as needed with discharge planning / needs. DCP- Discharge Planning Updated by [id number]: Nadia Maharaj on 03/08/19 11:[address] CM contacted Renaldo @ [facility] to make sure they had received records. Renaldo stated they had received records and are working it up currently. CM explained that patient is in CVICU room 5 and that we are just awaiting 02 to discharge. DCP- Discharge Planning Updated by [email or web address]: Nadia Maharaj on 03/08/19 10:[address] CM was notified that patient is needing Home 02. Walk test completed. CM spoke with patient regarding [employer] company. Patient requested [facility]. CM contacted [facility] [phone] fax [phone] and faxed over records. D/C IMM explained and signed 03/08/19 @ 1005. CM will continue to follow and assist as needed with discharge planning / needs. DCP- Discharge Planning Updated by [email or web address]: Nadia Maharaj on 03/01/19 7:[address] Patient Name: CHRIS OLIVER Admission Status: Urgent Accout number: [id number] Admission Date: 02-28-2019 : 1945 Admission Diagnosis: Attending: AURORA LIANG Current LOS: 1 Anticipated DC Date: Planned Disposition: Home Primary Insurance: MEDICARE A & B Discharge Planning Comments: CM met with patient and spouse (Lavelle) at bedside after explaining CM role and obtaining verbal consent. Patient lives at home with her Lavelle and plans to return there upon discharge. Patient feels this would be a safe discharge. CM discussed availability / needs of home health and medical equipment. Patient denies any discharge needs at this time. Patient may need walk test if 02 required at discharge. Patient states she will have her drive her home upon discharge. CM will continue to follow and assist as needed with discharge planning / needs. Manager Copy: Nadia Maharaj DCPIA - Discharge Planning Initial Assessment Updated by [id number]: Nadia Maharaj on 03/01/19 8:09 pm * Is the patient Alert and Oriented? Yes * How many steps to enter\exit or inside your home? * PCP Luis Angel * [facility] * Preadmission Environment Home with Family * ADLs Independent * Equipment Cane * List name and contact numbers for known caregivers / representatives who currently or will assist patient after discharge: Lavelle Oliver - spouse - [phone]; [phone] * Verbal permission to speak to the caregivers and representatives has been obtained from the patient. Yes * Community resources currently utilized None * Additional services required to return to the preadmission environment? No * Can the patient safely return to the preadmission environment? Yes * Has this patient been hospitalized within the prior 30 days at any hospital? No Coverage Notice Reviewer: [id number] - Nadia Maharaj Notice Issued Date-Time: 03/08/2019 10:05 Notice Type: IM Discharge Notice Notice Delivered To: Patient Relationship to Patient: Self Field Service Tech Name: Delivery Method: HAND - Hand Delivered Audra Days: Prior Verbal Notification: Recipient Understood Notice: Yes Recipient Signature: Yes Med Rec Note Co-signed by Attending: Coverage Notice Comment: Last DP export: 03/08/19 1:18 p Patient Name: CHRIS OLIVER Page [phone] at 1428 All edits/amendments must be made on the electronic document DICTATION DATE: 03/08/191426 REAL ESTATE LOAN OFFICER: TORIN 03/08/191426 RPT#: [id number] DC DATE: STATUS: ADM IN [facility] [address] [place] [address] END OF REPORT
--- NOTE | 2019-03-08 15:25 | NUR ---
O2 [employer] DELIVERED O2. OK TO DC HOME NOW.
--- NOTE | 2019-03-08 16:15 | NUR ---
DISCHARGE INSTRUCTIONS WENT OVER WITH THE PT AND THE FAMILY MEMBERS. NO QUESTIONS AT THIS TIME. ALL BELONGINGS ACCOUNTED FOR. LEFT IN A STABLE CONDITION.
--- NOTE | 2019-03-09 09:17 | MORECARE ---
CASE MANAGEMENT DISCHARGE SUMMARY PATIENT: CHRIS OLIVER UNIT: [id number] ADM DATE: 02/28/19 AGE: 73 : 43 SEX: F [facility] AUTHOR: CHELY,DOC PHYSICIAN: REFERRING PHYSICIAN: AURORA LIANG MD DATE OF SERVICE: 03/09/19 Discharge Plan Patient Name: CHRIS OLIVER Facility: [facility]:[place] : 1945 Planned Disposition: Home Anticipated Discharge Date: Discharge Date: 03/08/2019 Expected LOS: Initial Reviewer: [email or web address] Initial Review Date: 03/01/2019 Generated: 03/09/19 10:16 am Comments DCP- Discharge Planning Updated by [email or web address]: Nadia Maharaj on 03/08/19 1:[address] CM called and spoke with Luis A at [facility]. He stated that he didn't have a qualifying dx. for home 02. CM contacted [facility] [phone] and explained patient condition and hx of asthma and Jacy stated if you show that patient is getting up drafts or resp treatments then she should qualify. CM faxed records to [facility] for home 02. CM will continue to follow and assist as needed with discharge planning / needs. DCP- Discharge Planning Updated by KENNETH: Nadia Maharaj on 03/08/19 11:[address] CM contacted Renaldo @ [facility] to make sure they had received records. Renaldo stated they had received records and are working it up currently. CM explained that patient is in CVICU room 5 and that we are just awaiting 02 to discharge. DCP- Discharge Planning Updated by [id number]: Nadia Maharaj on 03/08/19 10:[address] CM was notified that patient is needing Home 02. Walk test completed. CM spoke with patient regarding [employer] company. Patient requested [facility]. CM contacted [facility] [phone] fax [phone] and faxed over records. D/C IMM explained and signed 03/08/19 @ 1005. CM will continue to follow and assist as needed with discharge planning / needs. DCP- Discharge Planning Updated by KENNETH: Nadia Maharaj on 03/01/19 7:[address] Patient Name: CHRIS OLIVER Admission Status: Urgent Accout number: [id number] Admission Date: 02-28-2019 : 1945 Admission Diagnosis: Attending: AURORA LIANG Current LOS: 1 Anticipated DC Date: Planned Disposition: Home Primary Insurance: MEDICARE A & B Discharge Planning Comments: CM met with patient and spouse (Lavelle) at bedside after explaining CM role and obtaining verbal consent. Patient lives at home with her Lavelle and plans to return there upon discharge. Patient feels this would be a safe discharge. CM discussed availability / needs of home health and medical equipment. Patient denies any discharge needs at this time. Patient may need walk test if 02 required at discharge. Patient states she will have her drive her home upon discharge. CM will continue to follow and assist as needed with discharge planning / needs. Cashier Self Service Gasoline: Nadia Maharaj DCPIA - Discharge Planning Initial Assessment Updated by [id number]: Nadia Maharaj on 03/01/19 8:09 pm * Is the patient Alert and Oriented? Yes * How many steps to enter\exit or inside your home? * PCP Luis Angel * [facility] * Preadmission Environment Home with Family * ADLs Independent * Equipment Cane * List name and contact numbers for known caregivers / representatives who currently or will assist patient after discharge: Lavelle Oliver - spouse - [phone]; [phone] * Verbal permission to speak to the caregivers and representatives has been obtained from the patient. Yes * Community resources currently utilized None * Additional services required to return to the preadmission environment? No * Can the patient safely return to the preadmission environment? Yes * Has this patient been hospitalized within the prior 30 days at any hospital? No Coverage Notice Reviewer: [id number] - Nadia Maharaj Notice Issued Date-Time: 03/08/2019 10:05 Notice Type: IM Discharge Notice Notice Delivered To: Patient Relationship to Patient: Self Orthotics Technician Name: Delivery Method: HAND - Hand Delivered Audra Days: Prior Verbal Notification: Recipient Understood Notice: Yes Recipient Signature: Yes Med Rec Note Co-signed by Attending: Coverage Notice Comment: Last DP export: 03/08/19 1:28 p Patient Name: CHRIS OLIVER Page [phone] at 0917 All edits/amendments must be made on the electronic document DICTATION DATE: 03/09/19915 STATE SUPERINTENDENT OF SCHOOLS: TORIN 03/09/19915 RPT#: [id number] DC DATE:03/08/19 STATUS: DIS IN [facility] [address] [place] [address] END OF REPORT
== END 2019-03-08 16:17 | disposition home or self-care (01) | DRG 221 ==
LOC: D.SDCHOLD 14:00 → D.CVICU 02-28 05:00 → D.SDCHOLD 02-28 05:00 → D.CVICU 02-28 10:15 → D.SDCHOLD 02-28 14:00 → D.CVICU 03-08 16:17
PROVIDERS: Internal Medicine Cardiovascular Disease; ADMIT Thoracic Surgery (Cardiothoracic Vascular Surgery); ATTEND Thoracic Surgery (Cardiothoracic Vascular Surgery)
PROC: 06BP0ZZ Excision of Right Saphenous Vein, Open Approach (ICD-10-PCS; 2019-02-28)
PROC: 02RF0JZ Replacement of Aortic Valve with Synthetic Substitute, Open Approach (ICD-10-PCS; 2019-02-28)
PROC: B24BZZ4 Ultrasonography of Heart with Aorta, Transesophageal (ICD-10-PCS; 2019-02-28)
PROC: 5A1221Z Performance of Cardiac Output, Continuous (ICD-10-PCS; 2019-02-28)
PROC: 021009W Bypass Coronary Artery, One Artery from Aorta with Autologous Venous Tissue, Open Approach (ICD-10-PCS; principal; 2019-02-28 07:30)
PROC: 02RF08Z Replacement of Aortic Valve with Zooplastic Tissue, Open Approach (ICD-10-PCS; 2019-02-28 07:30)
PROC: 05HY33Z Insertion of Infusion Device into Upper Vein, Percutaneous Approach (ICD-10-PCS; 2019-03-05)
DX: I25.10 Atherosclerotic heart disease of native coronary artery without angina pectoris (principal); I35.2 Nonrheumatic aortic (valve) stenosis with insufficiency; I71.2 Thoracic aortic aneurysm, without rupture; I48.0 Paroxysmal atrial fibrillation

== ENCOUNTER → 2019-04-04 10:58 | Outpatient (CLI) | payer MEDICARE, BC ==
[2019-03-01 12:36] VITALS: BMI 25.3
[~2019-04-04 10:58] MED LIST changes: +AMIODARONE HCL200 MG PO; +ASPIRIN EC81 M1 PO; +CARDIZEM CD180 MG PO; +COLACE100 MG PO; +ELIQUIS5 MG PO; +LANOXIN125 MCG PO; +PERCOCET 5-3251 TAB PO; +PROVENTIL/2.5 MG/3 M INH
[2019-04-04 11:59] LABS: HEMATOCRIT 40.4 % (36.0-48.0); MCH 30.3 pg (26.0-34.0); MCHC 32.2 g/dL (31.0-37.0); MCV 94.2 fL (80.0-100.0); MEAN PLATELET VOLUME 10.4 fL (7.4-10.4); RBC 4.29 10x6/uL (4.00-5.40); RDW 14.3 % (11.5-14.5); WBC 7.7 10x3/uL (4.8-10.8)
[2019-04-04 12:58] LABS: ALBUMIN 3.3 g/dL (3.4-5.0); ANION GAP 12.7 mmol/L (8-16); BILIRUBIN - TOTAL 0.24 mg/dL (0.2-1.3); CALCIUM 9.2 mg/dL (8.5-10.1); CARBON DIOXIDE 27.8 mmol/L (21.0-32.0); CREATININE - SERUM 0.8 mg/dL (0.6-1.3); POTASSIUM - SERUM 4.5 mmol/L (3.5-5.1); PROTEIN - SERUM 7.6 g/dL (6.4-8.2)
== END | disposition home or self-care (01) ==
LOC: D.LAB 10:58
PROVIDERS: ATTEND Thoracic Surgery (Cardiothoracic Vascular Surgery)
DX: D64.9 Anemia, unspecified (principal); J91.8 Pleural effusion in other conditions classified elsewhere

== ENCOUNTER 2019-04-09 11:43 | Outpatient (CLI) | payer MEDICARE, BC ==
[~2019-04-09] VITALS: Ht 165.1 cm; Wt 70.0 kg
[2019-04-09 12:48] VITALS: BP 137/77; Ht 165.1 cm; Wt 70.0 kg
--- NOTE | 2019-04-09 13:54 | NUR ---
1302 TO CXR FOR POST CXR VIA WC/ DENIES DYSPNEA. SPOUSE AT SIDE.
--- NOTE | 2019-04-09 13:55 | NUR ---
1312 BACK TO ROOM NO PROBLEMS VOICED. 1345 DC INSTS GIVEN VOICED UNDERSTANDING RELEASED IN WC.
--- NOTE | 2019-04-09 13:56 | NUR ---
1238 114/64 89 20 97% SAT 1352 119/64 82 20 95% SAT 1322 110/71 86 20 95% SAT 1345 127/72 82 20 95% SAT
--- NOTE | 2019-04-10 07:38 | OP ---
PATIENT NAME: CHRIS KINCAID MEDICAL RECORD: [id number] :41 LOCATION:[facility] ADMISSION DATE: SURGEON: AURORA LIANG MD DATE OF OPERATION: 04/09/2019 SURGEON: Aurora Liang MD PROCEDURE: Right ultrasound-guided thoracentesis. PROCEDURE NOTE: With the patient seated upright in the outpatient surgery area with heart rate, blood pressure, and pulse oximetry monitored, ultrasound was used to localize an aspiration window in the posterior aspect of the right chest. Then, 1% Xylocaine was used for local anesthetic. A 2 mm skin incision was made and the effusion was localized using a small needle. The thoracentesis catheter was introduced. A total of 1100 cc of serosanguineous fluid were removed without difficulty with no residual by ultrasound and a chest x-ray is pending. TRANSINT:[id number] Voice Confirmation ID: [id number] DOCUMENT ID: [id number] AURORA LIANG MD at 0738 CC: [id number] DICTATION DATE: 04/09/19 1359 INJECTION MOLDING MACHINE OPERATOR: 04/09/19 1407 DEP CLI 04/09/19 [place] [id number] [place] [id number]
== END 2019-04-09 13:45 | disposition home or self-care (01) ==
LOC: D.OPS 11:43
PROVIDERS: ATTEND Thoracic Surgery (Cardiothoracic Vascular Surgery)
DX: J90 Pleural effusion, not elsewhere classified (principal); Z01.812 Encounter for preprocedural laboratory examination

== ENCOUNTER → 2019-04-25 13:58 | Outpatient (CLI) | payer MEDICARE, BC ==
[2019-04-09 12:48] VITALS: BMI 25.6
== END | disposition home or self-care (01) ==
LOC: D.LAB 13:58
PROVIDERS: ATTEND Thoracic Surgery (Cardiothoracic Vascular Surgery)
DX: J90 Pleural effusion, not elsewhere classified (principal)

== ENCOUNTER → 2019-04-27 09:37 | Outpatient (CLI) | payer MEDICARE, BC ==
[2019-04-09 12:48] VITALS: BMI 25.6
== END | disposition home or self-care (01) ==
LOC: D.ECHO 09:37
PROVIDERS: ATTEND Thoracic Surgery (Cardiothoracic Vascular Surgery)
DX: I25.10 Atherosclerotic heart disease of native coronary artery without angina pectoris (principal); I35.8 Other nonrheumatic aortic valve disorders

== ENCOUNTER → 2019-06-13 09:16 | Outpatient (CLI) | payer MEDICARE, BC ==
[2019-04-09 12:48] VITALS: BMI 25.6
== END | disposition home or self-care (01) ==
LOC: D.RAD 09:16
PROVIDERS: ATTEND Thoracic Surgery (Cardiothoracic Vascular Surgery)
DX: J90 Pleural effusion, not elsewhere classified (principal); Z12.31 Encounter for screening mammogram for malignant neoplasm of breast

== ENCOUNTER → 2020-03-27 14:15 | Outpatient (CLI) | payer MEDICARE, BC ==
[2019-04-09 12:48] VITALS: BMI 25.6
== END | disposition home or self-care (01) ==
LOC: D.HCCECHO 14:15
PROVIDERS: ATTEND Internal Medicine Cardiovascular Disease
DX: I35.1 Nonrheumatic aortic (valve) insufficiency (principal)